=== PATIENT | female | born 1935 | race Caucasian/White ===

== ENCOUNTER 2016-11-03 20:10 | Emergency (ER) | payer MEDICARE, OTHER ==
[~2016-11-03] VITALS: Ht 165.1 cm; Wt 69.0 kg
[~2016-11-03 20:10] MED LIST: CLON.5 PO; FENT50DI TD; GABA300C3 PO; HYDR50TA15 PO; LASI20TA PO; LEVO88TA2 PO; LOSA50TA PO; MEGE40TA3 PO; METF-324 PO; METO25 PO; MIRA25TA PO; STAR120T PO
[2016-11-03 20:19] VITALS: BP 119/69; PULSE 67; RESP 14; TEMP 97.9; O2SAT 97
--- NOTE | 2016-11-03 20:34 | PD ---
HPI Chief Complaint: Chest Pain Time Seen by Provider: 20:21 Travel History International Travel<30 days: No Contact w/Intl Traveler<30days: No Traveled to known affect area: No History of Present Illness HPI Is an 81-year-old female presents emergency department for evaluation of chest pain now resolved. Patient states it started approximately an hour and a half prior to arrival. She states some middle of her chest without radiation also had some shortness of breath. The patient currently resides in a fpc called [facility]. She states that she's been in and out of the hospital similar and had complete workups stress test that she does not have any idea when she was there last. She asked EMS to bring her to [place] today. She did receive aspirin and nitroglycerin in route the latter which gave her mild headache but completely relieved her pain. She denies a history of heart attack or stroke. Denies any history of blood clots. PFSH Past Medical History Blood Disorders: No Cancer: No Cardiovascular Problems: Yes High Cholesterol: Yes Chemotherapy: Yes (HX ) Diabetes: Yes Endocrine: Yes Gastrointestinal Disorders: No Genitourinary: Yes (URINARY FREQUENCY) Hypertension: Yes Immune Disorder: No Implanted Vascular Access Dvce: No Musculoskeletal: No Neurologic: No Reproductive: No Respiratory: Yes Thyroid Disease: Yes (HYPO) ?: Not Past Surgical History Appendectomy: Yes Cholecystectomy: Yes Gynecologic Surgery: Yes (UTERINE FIBROIDS REMOVED) Mastectomy: Yes (LEFT) Tonsillectomy: Yes Other Surgery: Yes (see hx) Social History Alcohol Use: No Tobacco Use: No Substance Use: No Allergies-Medications (Allergen,Severity, Reaction): Coded Allergies: Avandia (Unverified Allergy, Severe, Swelling, 04/24/15) Aspirin (Unverified Allergy, Intermediate, Burning, 04/24/15) Adhesives (Verified Allergy, Unknown, 11/03/16) Amlodipine (Verified Allergy, Unknown, 11/03/16) Bupropion (Verified Allergy, Unknown, 11/03/16) Duloxetine HCl (Verified Allergy, Unknown, 11/03/16) Escitalopram Oxalate (Verified Allergy, Unknown, 11/03/16) Pseudoephedrine (Verified Allergy, Unknown, 11/03/16) Rosiglitazone (Verified Allergy, Unknown, 11/03/16) Scopolamine (Verified Allergy, Unknown, 11/03/16) Seafood (Verified Allergy, Unknown, 11/03/16) Valsartan (Verified Allergy, Unknown, 11/03/16) Reported Meds & Prescriptions Reported Meds & Active Scripts Active Reported Gabapentin 300 Mg Cap 900 Mg PO TID Zofran (Ondansetron HCl) 4 Mg Tab 4 Mg PO Q6HR PRN Metoprolol Tartrate 25 Mg Tab 12.5 Mg PO BID Atorvastatin (Atorvastatin Calcium) 10 Mg Tab 10 Mg PO HS Tylenol (Acetaminophen) 325 Mg Tab 650 Mg PO Q4H PRN Milk of Magnesia Liq (Magnesium Hydroxide) 400 Mg/5 Ml Susp 30 Ml PO DAILY PRN Lantus Inj (Insulin Glargine) 1,000 Unit/10 Ml Vial 10 Units SQ HS Potassium Chloride ER (Potassium Chloride) 20 Meq Tab 20 Meq PO DAILY Aspirin Low Dose (Aspirin) 81 Mg Chew 81 Mg CHEW DAILY Hydralazine HCl 25 Mg Tablet 25 Mg PO BID Nateglinide 120 Mg Tab 120 Mg PO TIDAC Gabapentin 300 Mg Cap 300 Mg PO DAILY Clonazepam 0.5 Mg Tab 0.25 Mg PO HS Furosemide 40 Mg Tab 40 Mg PO DAILY Humalog Inj (Insulin Human Lispro) 1,000 Unit/10 Ml Vial 5-25 Units SQ ACHS Max dose at bedtime:( )units; sugars < 70,(0)units; sugars 150-199,(5)units; sugars 200-249,(10)units; sugars 250-299,(15)units; sugars 300-349,(20)units; sugars more than 349,(25)units. Actos (Pioglitazone HCl) 30 Mg Tab 30 Mg PO DAILY Fentanyl Patch 72 HR (Fentanyl) 50 Mcg/Hr Patch 50 Mcg T-DERMAL Q72H Remove old patch when new one placed. Levoxyl (Levothyroxine Sodium) 88 Mcg Tab 88 Mcg PO DAILY Review of Systems Except as stated in HPI: all other systems reviewed are Neg Physical Exam Narrative GENERAL: Well-developed well-nourished, elderly female in no obvious distress. SKIN: Focused skin assessment warm/dry. HEAD: Atraumatic. Normocephalic. EYES: Pupils equal and round. No scleral icterus. No injection or drainage. ENT: No nasal bleeding or discharge. Mucous membranes pink and moist. NECK: Trachea midline. No JVD. CARDIOVASCULAR: Regular rate and rhythm. No murmur appreciated. 2+ bilateral equal pulses in all 4 extremities. RESPIRATORY: No accessory muscle use. Clear to auscultation. Breath sounds equal bilaterally. GASTROINTESTINAL: Abdomen soft, non-tender, nondistended. Hepatic and splenic margins not palpable. MUSCULOSKELETAL: No obvious deformities. No clubbing. No cyanosis. No edema. NEUROLOGICAL: Awake and alert. No obvious cranial nerve deficits. Motor grossly within normal limits. Normal speech. PSYCHIATRIC: Appropriate mood and affect; insight and judgment normal. Data Data Last Documented VS Vital Signs Date Time Temp Pulse Resp B/P Pulse Ox O2 Delivery O2 Flow Rate FiO2 11/03/16 22:49 68 20 139/67 97 Nasal Cannula 2 11/03/16 20:19 97.9 Orders Basic Metabolic Panel (Bmp) (11/03/16 20:33) Ckmb (Isoenzyme) Profile (11/03/16 20:33) Complete Blood Count With Diff (11/03/16 20:33) Magnesium (Mg) (11/03/16 20:33) Prothrombin Time / Inr (Pt) (11/03/16 20:33) Act Partial Throm Time (Ptt) (11/03/16 20:33) Troponin I (11/03/16 20:33) Chest, Single Ap (11/03/16 20:33) Ecg Monitoring (11/03/16 20:33) Iv Access Insert/Monitor (11/03/16 20:33) Oximetry (11/03/16 20:33) Oxygen Administration (11/03/16 20:33) Sodium Chloride 0.9% Flush (Ns Flush) (11/03/16 20:45) Gabapentin (Neurontin) (11/03/16 23:00) Labs Laboratory Tests Test 11/03/16 20:30 White Blood Count 7.6 TH/MM3 Red Blood Count 4.22 MIL/MM3 Hemoglobin 13.7 GM/DL Hematocrit 40.5 % Mean Corpuscular Volume 95.9 FL Mean Corpuscular Hemoglobin 32.4 PG Mean Corpuscular Hemoglobin 33.8 % Concent Red Cell Distribution Width 14.3 % Platelet Count 256 TH/MM3 Mean Platelet Volume 8.7 FL Neutrophils (%) (Auto) 66.2 % Lymphocytes (%) (Auto) 25.2 % Monocytes (%) (Auto) 7.7 % Eosinophils (%) (Auto) 0.5 % Basophils (%) (Auto) 0.4 % Neutrophils # (Auto) 5.1 TH/MM3 Lymphocytes # (Auto) 1.9 TH/MM3 Monocytes # (Auto) 0.6 TH/MM3 Eosinophils # (Auto) 0.0 TH/MM3 Basophils # (Auto) 0.0 TH/MM3 CBC Comment DIFF FINAL Differential Comment Prothrombin Time 10.8 SEC Prothromb Time International 1.0 RATIO Ratio Activated Partial 27.9 SEC Thromboplast Time Sodium Level 138 MEQ/L Potassium Level 3.4 MEQ/L Chloride Level 102 MEQ/L Carbon Dioxide Level 31.2 MEQ/L Anion Gap 5 MEQ/L Blood Urea Nitrogen 28 MG/DL Creatinine 1.11 MG/DL Estimat Glomerular Filtration 47 ML/MIN Rate Random Glucose 213 MG/DL Calcium Level 9.4 MG/DL Magnesium Level 2.0 MG/DL Total Creatine Kinase 57 U/L Troponin I LESS THAN 0.02 NG/ML MDM Medical Decision Making Medical Screen Exam Complete: Yes Emergency Medical Condition: Yes Interpretation(s) EKG shows sinus rhythm left axis deviation and poor R-wave progression. No concerning ST segment changes. First-degree AV block. Differential Diagnosis Chest wall pain, anxiety, chronic pain, ACS seems unlikely, MD seems unlikely. Narrative Course Patient roomed in emergency department, she appears fairly comfortable. Later into her ED course she had requested her gabapentin which she is due for. She states her legs been hurting quite a bit. Did receive a call from the patient' s healthcare surrogate Anya Pereira. She states that she is a physical therapist and that her mother has had a struggle with opiate abuse. She states that she just got out of the hospital at [facility] for chest pain and had a complete workup which was negative. She states that she is somewhat upset that they brought her to the hospital for this chest pain. She states that her mom has been under some stress recently because she is about to be released, back with her. I discussed this history with the patient and she was agreeable to going back to the fpc at this time. She is medically stable to do so. Troponin negative, EKG fairly unremarkable. Diagnosis Primary Impression: Chest pain Disposition: 03 DISCHARGE TO SNF Condition: Stable Jamison Price MD Nov 03, 2016 20:34
[2016-11-03] MEDS ORDERED: SODIUM CHLORIDE 0.9% FLUSH 10 ML FLUSH IVF PRN (20:45)
--- NOTE | 2016-11-03 20:51 | RADRPT ---
EXAM DATE/TIME: 11/03/2016 20:27 [facility] COMPARISON: CHEST SINGLE AP, April 24, 2015, 19:43. INDICATIONS : Chest pain MEDICAL HISTORY : Hypertension. Hypercholesterolemia. Carcinoma, breast. Diabetes. SURGICAL HISTORY : Mastectomy, left. Infusaport. ENCOUNTER: Initial ACUITY: 1 day PAIN SCORE: 3/10 LOCATION: chest FINDINGS: Single AP view of the chest. Right-sided [id number] remains in place. The lungs are clear. Tortuou s thoracic aorta. Cardiac silhouette within normal limits.. No evidence of pleural effusion or pneumo thorax. Surgical clips in the left axilla. Evidence of prior kyphoplasty or vertebroplasty in the low er thoracic region. CONCLUSION: No acute cardiopulmonary disease identified. Hood Stokes MD on November 03, 2016 at 20:48 Board Certified Radiologist. This report was verified electronically.
[2016-11-03] MEDS ORDERED: NATE120T PO (20:55)
[2016-11-03] MEDS ORDERED: METO25TA3 PO (20:55)
[2016-11-03] MEDS ORDERED: FURO40TA PO (20:55)
[2016-11-03] MEDS ORDERED: ATOR10TA15 PO (20:55)
[2016-11-03] MEDS ORDERED: TYLE325T PO (20:55)
[2016-11-03] MEDS ORDERED: FENT50DI T-DERMAL (20:55)
[2016-11-03] MEDS ORDERED: HYDR-3799 PO (20:55)
[2016-11-03] MEDS ORDERED: ASPI81CH37 CHEW (20:55)
[2016-11-03] MEDS ORDERED: POTA-163 PO (20:55)
[2016-11-03] MEDS ORDERED: GABA300C5 PO ×2 (20:55)
[2016-11-03] MEDS ORDERED: HUMALOG SQ (20:55)
[2016-11-03] MEDS ORDERED: CLON0.5T PO (20:55)
[2016-11-03] MEDS ORDERED: ZOFR4TAB PO (20:55)
[2016-11-03] MEDS ORDERED: MILKSUS PO (20:55)
[2016-11-03] MEDS ORDERED: ACTO30TA10 PO (20:55)
[2016-11-03] MEDS ORDERED: LANTUS2P SQ (20:55)
[2016-11-03] MEDS ORDERED: LEVO88TA30 PO (20:55)
[2016-11-03 21:15] LABS: AUTOMATED NEUTROPHIL # 5.1 TH/MM3 (1.8-7.7); BASOPHIL % 0.4 % (0.0-2.0); EOSINOPHIL % 0.5 % (0.0-4.0); HEMATOCRIT 40.5 % (35.0-46.0); HEMO FLAGS DIFF FINAL; LYMPH % 25.2 % (9.0-44.0); LYMPHOCYTE # 1.9 TH/MM3 (1.0-4.8); MEAN CELL VOLUME 95.9 FL (80.0-100.0); MEAN CORPUSCULAR HEMOGLOBIN 32.4 PG (27.0-34.0); MEAN CORPUSCULAR HGB CONC 33.8 % (32.0-36.0); MONO % 7.7 % (0.0-8.0); NEUT % 66.2 % (16.0-70.0); PLATELET COUNT 256 TH/MM3 (150-450); RED BLOOD COUNT 4.22 MIL/MM3 (4.00-5.30); RED CELL DISTRIBUTION WIDTH 14.3 % (11.6-17.2); WHITE BLOOD COUNT 7.6 TH/MM3 (4.0-11.0)
[2016-11-03 21:25] LABS: APTT (PATIENT) 27.9 SEC (24.3-30.1); PROTHROMBIN TIME - PATIENT 10.8 SEC (9.8-11.6)
[2016-11-03 21:29] LABS: ANION GAP 5 MEQ/L (5-15); BICARBONATE 31.2 MEQ/L (21.0-32.0); BLOOD UREA NITROGEN 28 MG/DL (7-18); CHLORIDE 102 MEQ/L (98-107); GLOMERULAR FILTRATION RATE 47 ML/MIN (>89); POTASSIUM 3.4 MEQ/L (3.5-5.1); SODIUM (NA) 138 MEQ/L (136-145)
[2016-11-03 21:35] LABS: CREATINE KINASE 57 U/L (26-192)
[2016-11-03 21:46] VITALS: BP 129/74; PULSE 69; RESP 18; O2SAT 96
[2016-11-03 22:49] VITALS: BP 139/67; PULSE 68; RESP 20; O2SAT 97
[2016-11-03] MEDS ORDERED: GABAPENTIN 300 MG CAP PO ONE (23:00)
[2016-11-04 09:11] VITALS: BP 137/76; PULSE 67; RESP 20; O2SAT 98
--- NOTE | 2016-11-04 16:40 | EKG ---
Date Performed: 11/03/2016 Time Performed: 20:26:00 PTAGE: 81 years EKG: Sinus rhythm WITH FIRST DEGREE AV BLOCK MARKED LEFT AXIS DEVIATION POSSIBLE ANTERIOR MYOCARDIAL INFARCTION ABNORM AL ECG PREVIOUS TRACING : 04/24/2015 20.17 Since previous tracing, no significant change noted DOCTOR: Kenneth Collazo Interpretating Date/Time 11/04/2016 16:39:13
== END 2016-11-04 12:16 ==
LOC: NEPC 20:10 → NEPD 11-04 12:16
DX: R07.9 Chest pain, unspecified (principal); I10 Essential (primary) hypertension; E11.9 Type 2 diabetes mellitus without complications; Z79.4 Long term (current) use of insulin; Z79.899 Other long term (current) drug therapy
CPT/HCPCS: 71010; 80048; 82550; 83735; 84484; 85025; 85610; 85730; 93005; 99284

== ENCOUNTER 2017-04-10 17:33 | Inpatient (IN) | payer MEDICARE, OTHER ==
[~2017-04-10] VITALS: Ht 172.7 cm; Wt 75.1 kg
[~2017-04-10 17:33] MED LIST changes: +ASPI81CH6 CHEW; +ATOR10TA15 PO; -CLON.5 PO; +CLON0.5T PO; +FENT50DI T-DERMAL; -FENT50DI TD; +FURO40TA PO; -GABA300C3 PO; +GABA300C5 PO; +HUMALOG SQ; +HYDR-3799 PO; -HYDR50TA15 PO; +LANTUS2P SQ; -LASI20TA PO; -LEVO88TA2 PO; +LEVO88TA30 PO; -LOSA50TA PO; -MEGE40TA3 PO; -METF-324 PO; -METO25 PO; +METO25TA3 PO; +MILKSUS PO; -MIRA25TA PO; +NATE120T PO; +PIOG30 PO; +POTA-163 PO; -STAR120T PO; +TYLE325T PO; +ZOFR4TAB PO
[2017-04-10 17:35] VITALS: BP 154/85; PULSE 72; RESP 18; TEMP 97.9; O2SAT 96
[2017-04-10] MEDS ORDERED: SODIUM CHLORIDE 0.9% FLUSH 10 ML FLUSH IV FLUSH PRN ×2 (18:00→22:15)
[2017-04-10] MEDS ORDERED: MORPHINE SULFATE 2 MG/ML INJ IV PUSH ONE ×2 (18:00→21:15)
--- NOTE | 2017-04-10 18:03 | PD ---
HPI Chief Complaint: Fall Time Seen by Provider: 17:53 Travel History International Travel<30 days: No Contact w/Intl Traveler<30days: No Traveled to known affect area: No History of Present Illness HPI 81-year-old female here with her grandson for evaluation of left flank and left lower back pain, left hip pain, and right shoulder pain after a fall while using her walker a couple hours ago. Patient fell backwards into a TV stand. She did not lose consciousness. She did not fall to the floor. She has been able to use her walker since the fall to ambulate, however it is been difficult for her. She reports pain is 10 out of 10, constant, worse with movement and palpation. She has a fentanyl patch for chronic knee pain. She is not on any antiplatelets or anticoagulants. No other injuries. PFSH Past Medical History Arthritis: Yes (OSTEO) Blood Disorders: No Anxiety: Yes Depression: Yes Cancer: No Cardiovascular Problems: Yes High Cholesterol: Yes Chemotherapy: Yes (HX ) Chest Pain: Yes Coronary Artery Disease: Yes Diabetes: Yes Diminished Hearing: Yes ([place]) Endocrine: Yes Gastrointestinal Disorders: No Genitourinary: Yes (URINARY FREQUENCY) Hypertension: Yes Immune Disorder: No Implanted Vascular Access Dvce: No Musculoskeletal: No Neurologic: Yes (PVD) Reproductive: No Respiratory: Yes Immunizations Current: Yes Thyroid Disease: Yes (HYPO) Menopausal: Yes : 3 Para: 3 Past Surgical History Appendectomy: Yes Cholecystectomy: Yes Gynecologic Surgery: Yes (UTERINE FIBROIDS REMOVED) Mastectomy: Yes (LEFT) Tonsillectomy: Yes Other Surgery: Yes (see hx) Social History Alcohol Use: No Tobacco Use: No Substance Use: No Allergies-Medications (Allergen,Severity, Reaction): Coded Allergies: aspirin (Unverified Allergy, Intermediate, Burning, 04/10/17) Fish Containing Products (Unverified Allergy, Unknown, 04/10/17) adhesive (Unverified Allergy, Unknown, 04/10/17) amlodipine (Unverified Allergy, Unknown, 04/10/17) bupropion (Unverified Allergy, Unknown, 04/10/17) duloxetine (Unverified Allergy, Unknown, 04/10/17) escitalopram (Unverified Allergy, Unknown, 04/10/17) pseudoephedrine (Unverified Allergy, Unknown, 04/10/17) rosiglitazone (Unverified Allergy, Unknown, 04/10/17) scopolamine (Unverified Allergy, Unknown, 04/10/17) valsartan (Unverified Allergy, Unknown, 04/10/17) Reported Meds & Prescriptions Reported Meds & Active Scripts Active Reported Gabapentin 300 Mg Cap 900 Mg PO TID Zofran (Ondansetron HCl) 4 Mg Tab 4 Mg PO Q6HR PRN Metoprolol Tartrate 25 Mg Tab 12.5 Mg PO BID Atorvastatin (Atorvastatin Calcium) 10 Mg Tab 10 Mg PO HS Tylenol (Acetaminophen) 325 Mg Tab 650 Mg PO Q4H PRN Milk of Magnesia Liq (Magnesium Hydroxide) 400 Mg/5 Ml Susp 30 Ml PO DAILY PRN Lantus Inj (Insulin Glargine) 1,000 Unit/10 Ml Vial 10 Units SQ HS Potassium Chloride ER (Potassium Chloride) 20 Meq Tab 20 Meq PO DAILY Aspirin Low Dose (Aspirin) 81 Mg Chew 81 Mg CHEW DAILY Hydralazine HCl 25 Mg Tablet 25 Mg PO BID Nateglinide 120 Mg Tab 120 Mg PO TIDAC Gabapentin 300 Mg Cap 300 Mg PO DAILY Clonazepam 0.5 Mg Tab 0.25 Mg PO HS Furosemide 40 Mg Tab 40 Mg PO DAILY Humalog Inj (Insulin Human Lispro) 1,000 Unit/10 Ml Vial 5-25 Units SQ ACHS Max dose at bedtime:( )units; sugars < 70,(0)units; sugars 150-199,(5)units; sugars 200-249,(10)units; sugars 250-299,(15)units; sugars 300-349,(20)units; sugars more than 349,(25)units. Actos (Pioglitazone HCl) 30 Mg Tab 30 Mg PO DAILY Fentanyl Patch 72 HR (Fentanyl) 50 Mcg/Hr Patch 50 Mcg T-DERMAL Q72H Remove old patch when new one placed. Levoxyl (Levothyroxine Sodium) 88 Mcg Tab 88 Mcg PO DAILY Review of Systems Except as stated in HPI: all other systems reviewed are Neg Physical Exam Narrative GENERAL: Well-developed, well-nourished, awake, alert, GCS 15, no apparent distress. SKIN: Focused skin assessment warm/dry. No lacerations, abrasions, or ecchymosis. HEAD: Atraumatic. Normocephalic. EYES: Pupils equal, round, 3 mm, reactive to light. No scleral icterus. No injection or drainage. ENT: No nasal bleeding or discharge. Mucous membranes pink and moist. NECK: Trachea midline. No JVD. CARDIOVASCULAR: Regular rate and rhythm. RESPIRATORY: No accessory muscle use. Clear to auscultation. Breath sounds equal bilaterally. GASTROINTESTINAL: Abdomen soft, non-tender, nondistended. MUSCULOSKELETAL: No obvious deformities. No clubbing. No cyanosis. No edema. No midline vertebral step-off or tenderness. Mild left flank tenderness. Left lateral hip with mild tenderness without obvious deformity, without lower external shortening or rotational deformity, with normal range of motion. Right shoulder is without obvious deformity, with moderate diffuse tenderness, with normal range of motion. Respiratory joints and extremities are without deformity, without tenderness, with normal range of motion. NEUROLOGICAL: Awake and alert. No obvious cranial nerve deficits. Motor grossly within normal limits. Normal speech. PSYCHIATRIC: Appropriate mood and affect; insight and judgment normal. Data Data Last Documented VS Vital Signs Date Time Temp Pulse Resp B/P (MAP) Pulse Ox O2 Delivery O2 Flow Rate FiO2 04/10/17 21:03 79 18 179/79 (112) 99 Room Air 04/10/17 17:35 97.9 Orders Orders Complete Blood Count With Diff (04/10/17 17:58) Comprehensive Metabolic Panel (04/10/17 17:58) Prothrombin Time / Inr (Pt) (04/10/17 17:58) Act Partial Throm Time (Ptt) (04/10/17 17:58) Ct Abd/Pel W Iv Contrast(Rout) (04/10/17 17:58) Iv Access Insert/Monitor (04/10/17 17:58) Ecg Monitoring (04/10/17 17:58) Oximetry (04/10/17 17:58) Sodium Chloride 0.9% Flush (Ns Flush) (04/10/17 18:00) Ct Brain W/O Iv Contrast(Rout) (04/10/17 ) Ct Cerv Spine W/O Contrast (04/10/17 ) Chest, Single Ap (04/10/17 ) Shoulder, Complete (>2vws) (04/10/17 ) Pelvis, Ap Only (Routine) (04/10/17 ) Morphine Inj (Morphine Inj) (04/10/17 18:00) Ct Thorax/ Chest W Iv Contrast (04/10/17 ) Iohexol 350 Inj (Omnipaque 350 Inj) (04/10/17 20:27) Ct Thor Spine W Iv Contrast (04/10/17 ) Ct Lumb Spine W Iv Contrast (04/10/17 ) Urinalysis - C+S If Indicated (04/10/17 21:04) Morphine Inj (Morphine Inj) (04/10/17 21:15) Ondansetron Inj (Zofran Inj) (04/10/17 21:15) Urine Culture (04/10/17 21:23) Ceftriaxone Inj (Rocephin Inj) (04/10/17 22:00) Labs Laboratory Tests Test 04/10/17 18:20 04/10/17 19:08 04/10/17 21:23 White Blood Count 8.9 TH/MM3 Red Blood Count 4.63 MIL/MM3 Hemoglobin 14.7 GM/DL Hematocrit 43.7 % Mean Corpuscular Volume 94.3 FL Mean Corpuscular Hemoglobin 31.8 PG Mean Corpuscular Hemoglobin Concent 33.7 % Red Cell Distribution Width 14.5 % Platelet Count 218 TH/MM3 Mean Platelet Volume 9.4 FL Neutrophils (%) (Auto) 77.4 % Lymphocytes (%) (Auto) 14.7 % Monocytes (%) (Auto) 7.1 % Eosinophils (%) (Auto) 0.2 % Basophils (%) (Auto) 0.6 % Neutrophils # (Auto) 6.9 TH/MM3 Lymphocytes # (Auto) 1.3 TH/MM3 Monocytes # (Auto) 0.6 TH/MM3 Eosinophils # (Auto) 0.0 TH/MM3 Basophils # (Auto) 0.1 TH/MM3 CBC Comment DIFF FINAL Differential Comment Prothrombin Time 11.1 SEC Prothromb Time International Ratio 1.1 RATIO Activated Partial Thromboplast Time 28.2 SEC Blood Urea Nitrogen 20 MG/DL Creatinine 1.06 MG/DL Random Glucose 173 MG/DL Total Protein 7.3 GM/DL Albumin 3.9 GM/DL Calcium Level 9.9 MG/DL Alkaline Phosphatase 101 U/L Aspartate Amino Transf (AST/SGOT) 20 U/L Alanine Aminotransferase (ALT/SGPT) 18 U/L Total Bilirubin 1.9 MG/DL Sodium Level 140 MEQ/L Potassium Level 3.4 MEQ/L Chloride Level 105 MEQ/L Carbon Dioxide Level 27.9 MEQ/L Anion Gap 7 MEQ/L Estimat Glomerular Filtration Rate 50 ML/MIN Urine Color LIGHT-YELLOW Urine Turbidity CLEAR Urine pH 7.0 Urine Specific [place] 1.020 Urine Protein NEG mg/dL Urine Glucose (UA) 70 mg/dL Urine Ketones TRACE mg/dL Urine Occult Blood TRACE Urine Nitrite NEG Urine Bilirubin NEG Urine Urobilinogen LESS THAN 2.0 MG/DL Urine Leukocyte Esterase SMALL Urine RBC 6 /hpf Urine WBC 11 /hpf Urine Squamous Epithelial Cells <1 /hpf Microscopic Urinalysis Comment CULTURE INDICATED MDM Medical Decision Making Medical Screen Exam Complete: Yes Emergency Medical Condition: Yes Differential Diagnosis Vertebral injury, retroperitoneal injury, hip fracture, hip contusion, shoulder contusion Narrative Course Vital signs reviewed. CBC is essentially unremarkable. CMP is remarkable for BUN 20, creatinine 1.06, GFR 50, random glucose 173, potassium 3.4, otherwise unremarkable. CT head: No acute disease. CT cervical spine: No acute fracture or dislocation. Degenerative changes. CT thoracic spine: No fracture or dislocation. Prior cement augmentation of T11 and T12. Diffuse mild degenerative changes. CT lumbar spine: No fracture dislocation. Advanced degenerative changes and scoliotic curvature. Old T12 and L1 compression deformities. CT thorax: CONCLUSION: 1. Cardiomegaly. 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 CT abdomen pelvis: CONCLUSION: 1. No signs of acute trauma. 2. 14 mm left UPJ stone with obstruction. Patient was made aware of all findings. She has had frequent episodes of nausea with dry heaving in the emergency department. She continues to complain of left flank pain. There is some perinephric stranding on the left with signs of obstruction with a passing proximal 1.4 cm stone in the proximal ureter. UA will be obtained. Because of the size of the stone and ongoing pain, the patient will be admitted for further treatment and evaluation and likely urology consultation. She is amenable to this plan. UA: 70 glucose, trace ketones, trace occult blood, small leukocyte esterase, 6 rbc's , 11 WBCs. Patient was given 1 g of IV Rocephin. Case discussed with hospitalist Dr. Agarwal who will admit the patient to the hospitalist service. Diagnosis Primary Impression: Ureterolithiasis Additional Impressions: Obstructive uropathy Fall Qualified Codes: W19.XXXA - Unspecified fall, initial encounter Intractable pain Admitting Information Admitting Physician Requests: Fabio Cejaan N MD Apr 10, 2017 18:03
[2017-04-10 18:40] LABS: AUTOMATED NEUTROPHIL # 6.9 TH/MM3 (1.8-7.7); BASOPHIL # 0.1 TH/MM3 (0-0.2); BASOPHIL % 0.6 % (0.0-2.0); EOSINOPHIL % 0.2 % (0.0-4.0); HEMATOCRIT 43.7 % (35.0-46.0); HEMOGLOBIN 14.7 GM/DL (11.6-15.3); LYMPH % 14.7 % (9.0-44.0); LYMPHOCYTE # 1.3 TH/MM3 (1.0-4.8); MEAN CELL VOLUME 94.3 FL (80.0-100.0); MEAN CORPUSCULAR HEMOGLOBIN 31.8 PG (27.0-34.0); MEAN CORPUSCULAR HGB CONC 33.7 % (32.0-36.0); MEAN PLATELET VOLUME 9.4 FL (7.0-11.0); MONO % 7.1 % (0.0-8.0); MONOCYTE # 0.6 TH/MM3 (0-0.9); NEUT % 77.4 % (16.0-70.0); PLATELET COUNT 218 TH/MM3 (150-450); RED BLOOD COUNT 4.63 MIL/MM3 (4.00-5.30); RED CELL DISTRIBUTION WIDTH 14.5 % (11.6-17.2); WHITE BLOOD COUNT 8.9 TH/MM3 (4.0-11.0)
[2017-04-10 18:53] LABS: INTERNATIONAL NORMALIZED RATIO 1.1 RATIO; PROTHROMBIN TIME - PATIENT 11.1 SEC (9.8-11.6)
[2017-04-10 19:00] VITALS: BP 176/87; PULSE 80; RESP 18; O2SAT 98
--- NOTE | 2017-04-10 19:20 | RADRPT ---
EXAM DATE/TIME: 04/10/2017 18:49 [facility] COMPARISON: No previous studies available for comparison. INDICATIONS : Evaluate pelvis for trauma, fell MEDICAL HISTORY : Hypertension. Hypercholesterolemia. Carcinoma, breast. Diabetes SURGICAL HISTORY : Mastectomy, left. Infusaport. ENCOUNTER: Initial ACUITY: 1 day PAIN SCORE: 0/10 LOCATION: Pelvis FINDINGS: A single frontal view of the pelvis demonstrates no evidence of fracture. The bony pelvic ring is in tact. Bony mineralization is significantly reduced. Venous catheter patient overlie the pelvis. The soft tissues are intact. CONCLUSION: No acute abnormality. Kane Stanley Jr., MD on April 10, 2017 at 19:18 Board Certified Radiologist. This report was verified electronically.
--- NOTE | 2017-04-10 19:20 | RADRPT ---
EXAM DATE/TIME: 04/10/2017 18:46 [facility] COMPARISON: CHEST SINGLE AP, November 03, 2016, 20:27. INDICATIONS : Evaluate chest for trauma, fell MEDICAL HISTORY : Hypertension. Hypercholesterolemia. Carcinoma, breast. Diabetes. SURGICAL HISTORY : Mastectomy, left. Infusaport ENCOUNTER: Initial ACUITY: 1 day PAIN SCORE: 0/10 LOCATION: Bilateral chest FINDINGS: A single view of the chest demonstrates the lungs to be symmetrically aerated without evidence of mas s, infiltrate or effusion. The cardiomediastinal contours are unremarkable. Osseous structures are intact. A Port-A-Cath overlies the right chest. Surgical clips are seen involving the left axilla. CONCLUSION: No acute disease. Kane Stanley Jr., MD on April 10, 2017 at 19:17 Board Certified Radiologist. This report was verified electronically.
--- NOTE | 2017-04-10 19:21 | RADRPT ---
EXAM DATE/TIME: 04/10/2017 18:51 [facility] COMPARISON: No previous studies available for comparison. INDICATIONS : Right shoulder pain, fell MEDICAL HISTORY : Hypertension. Hypercholesterolemia. Carcinoma, breast. Diabetes SURGICAL HISTORY : Mastectomy, left. Infusaport ENCOUNTER: Initial ACUITY: 1 day PAIN SCORE: 10/10 LOCATION: Right chest FINDINGS: 4 views of the right shoulder show no fracture or dislocation. An oval shaped ossification is seen ad jacent to the right superior lateral humeral head. There is spurring seen at the a.c. joint. A Port-A -Cath overlies the right shoulder. Soft tissues are otherwise unremarkable. CONCLUSION: Suspected chronic rotator cuff injury. No acute abnormality. Kane Stanley Jr., MD on April 10, 2017 at 19:18 Board Certified Radiologist. This report was verified electronically.
[2017-04-10 19:51] VITALS: RESP 16; O2SAT 97
[2017-04-10 19:56] LABS: ALBUMIN 3.9 GM/DL (3.4-5.0); AST (GOT) 20 U/L (15-37); BICARBONATE 27.9 MEQ/L (21.0-32.0); BLOOD UREA NITROGEN 20 MG/DL (7-18); CALCIUM 9.9 MG/DL (8.5-10.1); CHLORIDE 105 MEQ/L (98-107); CREATININE 1.06 MG/DL (0.50-1.00); GLOMERULAR FILTRATION RATE 50 ML/MIN (>89); GLUCOSE,RANDOM 173 MG/DL (74-106); SODIUM (NA) 140 MEQ/L (136-145)
[2017-04-10 19:57] LABS: ALT (GPT) 18 U/L (10-53)
[2017-04-10 19:59] LABS: ALKALINE PHOSPHATASE 101 U/L (45-117); TOTAL BILIRUBIN ADULT 1.9 MG/DL (0.2-1.0); TOTAL PROTEIN 7.3 GM/DL (6.4-8.2)
[2017-04-10] MEDS ORDERED: IOHEXOL 350 MG/ML 10 ML VIAL (for RAD DIAG) IVCONTRAST ONE (20:27)
--- NOTE | 2017-04-10 20:40 | RADRPT ---
EXAM DATE/TIME: 04/10/2017 20:04 [facility] COMPARISON: No previous studies available for comparison. INDICATIONS : Trauma, fall. RADIATION DOSE: 56.35 CTDIvol (mGy) MEDICAL HISTORY : Hypertension. Diabetes mellitus type 2. SURGICAL HISTORY : None. ENCOUNTER: Initial ACUITY: 1 day PAIN SCALE: 0/10 LOCATION: cranial TECHNIQUE: Multiple contiguous axial images were obtained of the head. Using automated exposure control and adj ustment of the mA and/or kV according to patient size, radiation dose was kept as low as reasonably a chievable to obtain optimal diagnostic quality images. DICOM format image data is available electro nically for review and comparison. FINDINGS: CEREBRUM: Atrophy. The ventricles are normal for age. No evidence of midline shift, mass lesion, hemorrhage or acute infarction. No extra-axial fluid collections are seen. POSTERIOR FOSSA: The cerebellum and brainstem are intact. The 4th ventricle is midline. The cerebellopontine angle i s unremarkable. EXTRACRANIAL: The visualized portion of the orbits is intact. SKULL: The calvaria is intact. No evidence of skull fracture. CONCLUSION: No acute disease. Kane Stanley Jr., MD on April 10, 2017 at 20:37 Board Certified Radiologist. This report was verified electronically.
--- NOTE | 2017-04-10 20:43 | RADRPT ---
EXAM DATE/TIME: 04/10/2017 20:05 [facility] COMPARISON: No previous studies available for comparison. INDICATIONS : Trauma, fall. RADIATION DOSE: 31.25 CTDIvol (mGy) MEDICAL HISTORY : Hypertension. Diabetes mellitus type 2. SURGICAL HISTORY : None. ENCOUNTER: Initial ACUITY: 1 day PAIN SCALE: 0/10 LOCATION: neck TECHNIQUE: Volumetric scanning of the cervical spine was performed. Multiplanar reconstructions in the sagittal, coronal and oblique axial planes were performed. Using automated exposure control and adjustment o f the mA and/or kV according to patient size, radiation dose was kept as low as reasonably achievable to obtain optimal diagnostic quality images. DICOM format image data is available electronically f or review and comparison. FINDINGS: VERTEBRAE: Normal vertebral body height. ALIGNMENT: Curvature towards the patient's left felt to be positional in nature. Grade 1 anterolisthesis of C4 o n C5. C2-C3: Mild broad-based disc bulge. No central canal stenosis. Neural foramina are patent bilaterally. C3-C4: Mild central bulge. No abutment of the cord or central canal stenosis. Bony uncovertebral hypertrophy generates mild left neural foraminal narrowing. The right remains patent. C4-C5: There is an anterolisthesis with broad-based disc osteophyte complex. Central canal remains patent. P rominent bony uncovertebral hypertrophy generates severe left and moderate right neural foraminal hanna rowing. C5-C6: There is a mild broad-based disc bulge. Central canal remains patent. Bony uncovertebral hypertrophy generates moderate bilateral neural foraminal narrowing. C6-C7: The bony spinal canal is normal in size. No evidence of disc bulge or herniation. The neural forami na are bilaterally patent. C7-T1: The bony spinal canal is normal in size. No evidence of disc bulge or herniation. The neural forami na are bilaterally patent. CONCLUSION: 1. No fracture or dislocation. 2. Degenerative changes as detailed above. Kane Stanley Jr., MD on April 10, 2017 at 20:38 Board Certified Radiologist. This report was verified electronically.
--- NOTE | 2017-04-10 20:47 | RADRPT ---
EXAM DATE/TIME: 04/10/2017 20:09 [facility] COMPARISON: CT ABDOMEN & PELVIS W CONTRAST, April 16, 2015, 17:40. INDICATIONS : Trauma, fall. IV CONTRAST: 100 cc Omnipaque 350 (iohexol) IV ; Cumulative dose for multiple exams. ORAL CONTRAST: No oral contrast ingested. RADIATION DOSE: 7.31 CTDIvol (mGy) ; Combined studies - Thorax/Abdomen/Pelvis MEDICAL HISTORY : Hypertension. Diabetes mellitus type 2. SURGICAL HISTORY : Appendectomy. Cholecystectomy. ENCOUNTER: Initial ACUITY: 1 day PAIN SCALE: 0/10 LOCATION: abdomen TECHNIQUE: Volumetric scanning of the abdomen and pelvis was performed. Using automated exposure control and ad justment of the mA and/or kV according to patient size, radiation dose was kept as low as reasonably achievable to obtain optimal diagnostic quality images. DICOM format image data is available electro nically for review and comparison. FINDINGS: LOWER LUNGS: Moderate cardiomegaly without pericardial effusion. LIVER: Mild intrahepatic and extrahepatic biliary prominence is again seen and remains long-term stable in t his patient status post cholecystectomy. No cira dilatation. The liver is without mass. Portal vein is patent. SPLEEN: Normal size without lesion. PANCREAS: Within normal limits. KIDNEYS: There is a 1.4 cm stone involving the left UPJ. There is resulting mild hydronephrosis as well as mil d stranding of the perinephric fat. No perinephric fluid collections are appreciated. Right kidney is unremarkable. ADRENAL GLANDS: Within normal limits. VASCULAR: There is no aortic aneurysm. BOWEL/MESENTERY: The stomach, small bowel, and colon demonstrate no acute abnormality. There is no free intraperitone al air or fluid. Scattered colonic diverticuli without acute inflammation. ABDOMINAL WALL: Within normal limits. RETROPERITONEUM: There is no lymphadenopathy. BLADDER: No wall thickening or mass. REPRODUCTIVE: Within normal limits. INGUINAL: There is no lymphadenopathy or hernia. MUSCULOSKELETAL: Prior cement augmentation of T11. A degenerative and scoliotic lumbar spine. No acute fracture. CONCLUSION: 1. No signs of acute trauma. 2. 14 mm left UPJ stone with obstruction. Kaen Stanley Jr., MD on April 10, 2017 at 20:41 Board Certified Radiologist. This report was verified electronically.
--- NOTE | 2017-04-10 20:53 | RADRPT ---
EXAM DATE/TIME: 04/10/2017 20:13 [facility] COMPARISON: No previous studies available for comparison. INDICATIONS : Trauma, fall. IV CONTRAST: 100 cc Omnipaque 350 (iohexol) IV ; Cumulative dose for multiple exams. RADIATION DOSE: 7.31 CTDIvol (mGy) MEDICAL HISTORY : Hypertension. Diabetes mellitus type 2. SURGICAL HISTORY : Mastectomy, left. Kyphoplasty. ENCOUNTER: Initial ACUITY: 1 day PAIN SCALE: 0/10 LOCATION: chest TECHNIQUE: Volumetric scanning of the chest was performed. Using automated exposure control and adjustment of t he mA and/or kV according to patient size, radiation dose was kept as low as reasonably achievable to obtain optimal diagnostic quality images. DICOM format image data is available electronically for review and comparison. Follow-up recommendations for detected pulmonary nodules are based at a minimum on nodule size and pa tient risk factors according to Fleischner Society Guidelines. FINDINGS: LUNGS: There is no consolidation or pneumothorax. No concerning pulmonary nodule is visualized. PLEURA: There is no pleural thickening or pleural effusion. MEDIASTINUM: Mild cardiomegaly without pericardial effusion. Coronary artery and aortic atherosclerotic calcificat ions. Pulmonary arteries and aorta are normal in caliber. No mass or adenopathy. 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 AXILLAE: Within normal limits. No lymphadenopathy. SKELETAL: Within normal limits for patient age. MISCELLANEOUS: Prior cement augmentation of 2 thoracic vertebral bodies. Port-A-Cath overlies the right chest. CONCLUSION: 1. Cardiomegaly. 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 Kane Stanley Jr., MD on April 10, 2017 at 20:48 Board Certified Radiologist. This report was verified electronically.
--- NOTE | 2017-04-10 21:01 | RADRPT ---
EXAM DATE/TIME: 04/10/2017 20:13 [facility] COMPARISON: CT ABDOMEN & PELVIS W CONTRAST, April 16, 2015, 17:40. INDICATIONS : Trauma, fall. IV CONTRAST: 100 cc Omnipaque 350 (iohexol) IV ; Cumulative dose for multiple exams. RADIATION DOSE: CTDIvol (mGy) ; Reconstructed from previous dataset, no dose MEDICAL HISTORY : Diabetes mellitus type 2. Hypertension. SURGICAL HISTORY : Kyphoplasty. ENCOUNTER: Initial ACUITY: 1 day PAIN SCALE: 5/10 LOCATION: Paraspinal TECHNIQUE: Volumetric scanning of the lumbar spine was performed. Multiplanar reconstructions in the sagittal, coronal and oblique axial planes were performed. Using automated exposure control and adjustment of the mA and/or kV according to patient size, radiation dose was kept as low as reasonably achievable t o obtain optimal diagnostic quality images. DICOM format image data is available electronically for review and comparison. FINDINGS: CONUS MEDULLARIS: Normal. PARASPINAL SOFT TISSUES: Normal. LUMBAR CORD: Normal. DURAL SAC: Normal. There is cement augmentation changes seen involving T12 with vertebral plana. There is an old munir sepideh fracture involving L1. It is new from 2016 but chronic in nature. No acute compression fracture observed. A scoliotic curvature noted. L1-L2: The disc, uncovertebral joints, central canal, foramina, and facets are normal. L3-L4: Disc space narrowing with vacuum disc phenomenon and broad based disc bulge. Mild ligamentum flavum h ypertrophy of the facets. Mild narrowing of the lateral recesses and neural foramina bilaterally but more pronounced on the right. Central canal remains patent. CONCLUSION: 1. No fracture or dislocation. 2. Advanced degenerative changes and scoliotic curvature as detailed above. 3. Old T12 and L1 compression deformities. Kane Stanley Jr., MD on April 10, 2017 at 20:55 Board Certified Radiologist. This report was verified electronically.
--- NOTE | 2017-04-10 21:02 | RADRPT ---
EXAM DATE/TIME: 04/10/2017 20:13 [facility] COMPARISON: No previous studies available for comparison. INDICATIONS : Trauma, fall. IV CONTRAST: 100 cc Omnipaque 350 (iohexol) IV ; Cumulative dose for multiple exams. RADIATION DOSE: CTDIvol (mGy) ; Reconstructed from previous dataset, no dose MEDICAL HISTORY : Hypertension. Diabetes mellitus type 2. SURGICAL HISTORY : Kyphoplasty. ENCOUNTER: Initial ACUITY: 1 day PAIN SCALE: 5/10 LOCATION: Paraspinal TECHNIQUE: Volumetric scanning of the thoracic spine was performed. Multiplanar reconstructions in the sagittal , coronal and oblique axial planes were performed. Using automated exposure control and adjustment o f the mA and/or kV according to patient size, radiation dose was kept as low as reasonably achievable to obtain optimal diagnostic quality images. DICOM format image data is available electronically fo r review and comparison. FINDINGS: Diffuse osteopenia. Prior cement augmentation of T11 and T12. There is vertebra plana at T12. No acut e compression fractures. Diffuse mild disc space narrowing and mild anterior osteophyte production no jannet. T1-T2: Normal. T2-T3: The thecal sac has a normal diameter. No evidence of disc bulge or protrusion. T3-T4: The thecal sac has a normal diameter. No evidence of disc bulge or protrusion. T4-T5: The thecal sac has a normal diameter. No evidence of disc bulge or protrusion. T5-T6: The thecal sac has a normal diameter. No evidence of disc bulge or protrusion. T6-T7: The thecal sac has a normal diameter. No evidence of disc bulge or protrusion. T7-T8: The thecal sac has a normal diameter. No evidence of disc bulge or protrusion. T8-T9: The thecal sac has a normal diameter. No evidence of disc bulge or protrusion. T9-T10: The thecal sac has a normal diameter. No evidence of disc bulge or protrusion. T10-T11: The thecal sac has a normal diameter. No evidence of disc bulge or protrusion. T11-T12: The thecal sac has a normal diameter. No evidence of disc bulge or protrusion. T12-L1: The thecal sac has a normal diameter. No evidence of disc bulge or protrusion. CONCLUSION: 1. No fracture or dislocation. 2. Prior cement augmentation of T11 and T12. 3. Diffuse mild degenerative changes. Kane Stanley Jr., MD on April 10, 2017 at 20:59 Board Certified Radiologist. This report was verified electronically.
[2017-04-10 21:03] VITALS: BP 179/79; PULSE 79; RESP 18; O2SAT 99
[2017-04-10] MEDS ORDERED: ONDANSETRON HCL 4 MG/2 ML VIAL IV PUSH ONE (21:15)
[2017-04-10 21:46] LABS: BILIRUBIN, URINE NEG (NEG); BLOOD, URINE TRACE (NEG); GLUCOSE,URINE 70 mg/dL (NEG); KETONE, URINE TRACE mg/dL (NEG); NITRITE,URINE NEG (NEG); SQUAMOUS EPITHELIAL CELL URINE <1 /hpf (0-5); URINE COLOR LIGHT-YELLOW (YELLW/STRAW); URINE LEUKOCYTE ESTERASE SMALL (NEG)
[2017-04-10] MEDS ORDERED: cefTRIAXone INJ 1,000 MG in SODIUM CHLORIDE 0.9% INJ 100 ML IV ONE (22:00)
[2017-04-10] MEDS ORDERED: NALOXONE HCL 0.4 MG/ML AMP IV PUSH PRN (22:15)
[2017-04-10] MEDS ORDERED: POTA-163 PO (22:31)
[2017-04-10] MEDS ORDERED: FURO1TAB60 PO (22:31)
[2017-04-10] MEDS ORDERED: PRIL20TA2 PO (22:31)
[2017-04-10] MEDS ORDERED: NEUR300C PO (22:31)
--- NOTE | 2017-04-10 23:02 | HHI.HP ---
[facility] Primary Care Physician Nancy Parisi MD Admission Diagnosis ureterolithiasis, obstructive uropathy, intractable pain Diagnoses: Chief Complaint: Intractable left flank pain Travel History International Travel<30 Days: No Contact w/Intl Traveler <30 Da: No Traveled to Known Affected Are: No History of Present Illness Pleasant 81-year-old female with a history of diabetes, chronic back pain, GERD , fibromyalgia, hypothyroid, hypertension and overactive bladder was brought to the ED after a fall at home. She complains of 8 out of 10 left flank pain with radiation to her back that is worse with movement and palpation, with no associated symptoms. She states she was just walking around the house with her walker when she tripped and fell back into a TV stand. She denies any loss of consciousness. She denies any chest pain, shortness of breath, fever or chills. She lives at home with her daughter and grand kids and states they were out of town at the time. She states she normally gets around pretty well with her walker. She does have a fentanyl patch on that takes the edge off her back pain but states it is not helping with her current exacerbation of left flank pain. She denies any pain or burning sensation with urination. I tried to get a hold of Patient's daughter Christi # [phone], message was left. Review of Systems Except as stated in HPI: all other systems reviewed are Neg Past Family Social History Past Medical History Breast cancer Diabetes Chronic back pain GERD Fibromyalgia Hypothyroidism Hypertension Overactive bladder Past Surgical History Left mastectomy Right knee arthroplasty Cholecystectomy Appendectomy Reported Medications Reported Meds & Active Scripts Active Reported Potassium Chloride ER (Potassium Chloride) 20 Meq Tab 20 Meq PO EVERY OTHER DAY Lasix (Furosemide) 40 Mg Tab 40 Mg PO EVERY OTHER DAY Prilosec (Omeprazole Magnesium) 20 Mg Tab 20 Mg PO DAILY Neurontin (Gabapentin) 300 Mg Cap 300 Mg PO TID Metoprolol Tartrate 25 Mg Tab 12.5 Mg PO BID Atorvastatin (Atorvastatin Calcium) 10 Mg Tab 10 Mg PO HS Lantus Inj (Insulin Glargine) 1,000 Unit/10 Ml Vial 10 Units SQ HS Aspirin Low Dose (Aspirin) 81 Mg Chew 81 Mg CHEW DAILY Hydralazine HCl 25 Mg Tablet 25 Mg PO BID Nateglinide 120 Mg Tab 120 Mg PO TIDAC Clonazepam 0.5 Mg Tab 0.25 Mg PO HS Actos (Pioglitazone HCl) 30 Mg Tab 30 Mg PO DAILY Fentanyl Patch 72 HR (Fentanyl) 50 Mcg/Hr Patch 50 Mcg T-DERMAL Q72H Remove old patch when new one placed. Levoxyl (Levothyroxine Sodium) 88 Mcg Tab 88 Mcg PO DAILY Allergies: Coded Allergies: aspirin (Unverified Allergy, Intermediate, Burning, 04/10/17) Fish Containing Products (Unverified Allergy, Unknown, 04/10/17) adhesive (Unverified Allergy, Unknown, 04/10/17) amlodipine (Unverified Allergy, Unknown, 04/10/17) bupropion (Unverified Allergy, Unknown, 04/10/17) duloxetine (Unverified Allergy, Unknown, 04/10/17) escitalopram (Unverified Allergy, Unknown, 04/10/17) pseudoephedrine (Unverified Allergy, Unknown, 04/10/17) rosiglitazone (Unverified Allergy, Unknown, 04/10/17) scopolamine (Unverified Allergy, Unknown, 04/10/17) valsartan (Unverified Allergy, Unknown, 04/10/17) Active Ordered Medications Current Medications Medications (Trade) Dose Ordered Sig/Faheem Route Start Time Stop Time Status Last Admin Sodium Chloride 1,000 ml @ 100 mls/hr Q10H IV 04/10/17 22:11 04/10/17 23:54 (NS Flush) 2 ml UNSCH PRN IV FLUSH 04/10/17 22:15 (NS Flush) 2 ml BID IV FLUSH 04/11/17 09:00 (Narcan Inj) 0.4 mg UNSCH PRN IV PUSH 04/10/17 22:15 Ceftriaxone Sodium 1000 mg/ Sodium Chloride 100 ml @ 200 mls/hr Q24H IV 04/11/17 22:00 Family History Mom: Diabetes Social History Patient denies any tobacco, alcohol or illicit drug use Physical Exam Vital Signs Vital Signs Date Time Temp Pulse Resp B/P (MAP) Pulse Ox O2 Delivery O2 Flow Rate FiO2 04/10/17 21:03 79 18 179/79 (112) 99 Room Air 04/10/17 19:51 16 97 Room Air 04/10/17 19:00 80 18 176/87 (116) 98 Room Air 04/10/17 17:35 97.9 72 18 154/85 (108) 96 Room Air Physical Exam GENERAL: This is a well-nourished, well-developed patient, in moderate amount of pain SKIN: No rashes, ecchymoses or lesions. Cool and dry. HEAD: Atraumatic. Normocephalic. EYES: Pupils equal round and reactive. ENT: Nose without bleeding, purulent drainage or septal hematoma. Airway patent. NECK: Trachea midline. No JVD or lymphadenopathy. CARDIOVASCULAR: Regular rate and rhythm without murmurs, gallops, or rubs. RESPIRATORY: Diminished at bases. No wheezes, rales, or rhonchi. GASTROINTESTINAL: Left lower abdominal tenderness, soft, nondistended. Left CVA tenderness MUSCULOSKELETAL: Extremities without clubbing, cyanosis, or edema. No calf tenderness. Negative Homans sign bilaterally. NEUROLOGICAL: Awake and alert. Motor and sensory grossly within normal limits. normal speech. Laboratory Laboratory Tests Test 04/10/17 18:20 04/10/17 19:08 04/10/17 21:23 White Blood Count 8.9 Red Blood Count 4.63 Hemoglobin 14.7 Hematocrit 43.7 Mean Corpuscular Volume 94.3 Mean Corpuscular Hemoglobin 31.8 Mean Corpuscular Hemoglobin Concent 33.7 Red Cell Distribution Width 14.5 Platelet Count 218 Mean Platelet Volume 9.4 Neutrophils (%) (Auto) 77.4 Lymphocytes (%) (Auto) 14.7 Monocytes (%) (Auto) 7.1 Eosinophils (%) (Auto) 0.2 Basophils (%) (Auto) 0.6 Neutrophils # (Auto) 6.9 Lymphocytes # (Auto) 1.3 Monocytes # (Auto) 0.6 Eosinophils # (Auto) 0.0 Basophils # (Auto) 0.1 CBC Comment DIFF FINAL Differential Comment Prothrombin Time 11.1 Prothromb Time International Ratio 1.1 Activated Partial Thromboplast Time 28.2 Blood Urea Nitrogen 20 Creatinine 1.06 Random Glucose 173 Total Protein 7.3 Albumin 3.9 Calcium Level 9.9 Alkaline Phosphatase 101 Aspartate Amino Transf (AST/SGOT) 20 Alanine Aminotransferase (ALT/SGPT) 18 Total Bilirubin 1.9 Sodium Level 140 Potassium Level 3.4 Chloride Level 105 Carbon Dioxide Level 27.9 Anion Gap 7 Estimat Glomerular Filtration Rate 50 Urine Color LIGHT-YELLOW Urine Turbidity CLEAR Urine pH 7.0 Urine Specific [place] 1.020 Urine Protein NEG Urine Glucose (UA) 70 Urine Ketones TRACE Urine Occult Blood TRACE Urine Nitrite NEG Urine Bilirubin NEG Urine Urobilinogen LESS THAN 2.0 Urine Leukocyte Esterase SMALL Urine RBC 6 Urine WBC 11 Urine Squamous Epithelial Cells <1 Microscopic Urinalysis Comment CULTURE INDICATED Date/Time Source Procedure Growth Status 04/10/17 21:23 Urine Clean Catch Urine Culture Pending Received Result Diagram: 04/10/17 1820 04/10/17 190 Imaging Last Impressions Abdomen/Pelvis CT 04/10/17 175 Signed Impressions: Service Date/Time: March 20:09 - CONCLUSION: 1. No signs of acute trauma. 2. 14 mm left UPJ stone with obstruction. Kane Stanley Jr., MD Thoracic Spine CT 04/10/17 0000 Signed Impressions: Service Date/Time: March 20:13 - CONCLUSION: 1. No fracture or dislocation. 2. Prior cement augmentation of T11 and T12. 3. Diffuse mild degenerative changes. Kane Satnley Jr., MD Shoulder X-Ray 04/10/17 0000 Signed Impressions: Service Date/Time: March 18:51 - CONCLUSION: Suspected chronic rotator cuff injury. No acute abnormality. Kaen Stanley Jr., MD Pelvis X-Ray 04/10/17 0000 Signed Impressions: Service Date/Time: March 18:49 - CONCLUSION: No acute abnormality. Kane Stanley Jr., MD Lumbar Spine CT 04/10/17 0000 Signed Impressions: Service Date/Time: March 20:13 - CONCLUSION: 1. No fracture or dislocation. 2. Advanced degenerative changes and scoliotic curvature as detailed above. 3. Old T12 and L1 compression deformities. Kane Stanley Jr., MD Head CT 04/10/17 0000 Signed Impressions: Service Date/Time: March 20:04 - CONCLUSION: No acute disease. Kane Stanley Jr., MD Chest X-Ray 04/10/17 0000 Signed Impressions: Service Date/Time: March 18:46 - CONCLUSION: No acute disease. Kane Stanley Jr., MD Chest CT 04/10/17 0000 Signed Impressions: Service Date/Time: March 20:13 - CONCLUSION: 1. Cardiomegaly. 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 Kane Stanley Jr., MD Cervical Spine CT 04/10/17 0000 Signed Impressions: Service Date/Time: March 20:05 - CONCLUSION: 1. No fracture or dislocation. 2. Degenerative changes as detailed above. MD Esther Dick Jr. VTE Risk Assessment Caprini VTE Risk Assessment: No/Low Risk (score <= 1) Caprini Risk Assessment Model Point Value = 1 Point Value = 2 Point Value = 3 Point Value = 5 Age 41-60 Minor surgery BMI > 25 kg/m2 Swollen legs Varicose veins or History of unexplained or recurrent spontaneous Oral contraceptives or hormone replacement Sepsis (< 1 month) Serious lung disease, including pneumonia (< 1 month) Abnormal pulmonary function Acute myocardial infarction Congestive heart failure (< 1 month) History of inflammatory bowel disease Medical patient at bed rest Age 61-74 Arthroscopic surgery Major open surgery (> 45 min) Laparoscopic surgery (> 45 min) Malignancy Confined to bed (> 72 hours) Immobilizing plaster cast Central venous access Age >= 75 History of VTE Family history of VTE Factor V Leiden Prothrombin [id number] Lupus anticoagulant Anticardiolipin antibodies Elevated serum homocysteine Heparin-induced thrombocytopenia Other congenital or acquired thrombophilia Stroke (< 1 month) Elective arthroplasty Hip, pelvis, or leg fracture Acute spinal cord injury (< 1 month) Prophylaxis Regimen Total Risk Factor Score Risk Level Prophylaxis Regimen 0-1 Low Early ambulation 2 Moderate Order ONE of the following: *Sequential Compression Device (SCD) *Heparin 5000 units SQ BID 3-4 Higher Order ONE of the following medications: *Heparin 5000 units SQ TID *Enoxaparin/Lovenox 40 mg SQ daily (WT < 150 kg, CrCl > 30 mL/min) *Enoxaparin/Lovenox 30 mg SQ daily (WT < 150 kg, CrCl > 10-29 mL/min) *Enoxaparin/Lovenox 30 mg SQ BID (WT < 150 kg, CrCl > 30 mL/min) AND/OR *Sequential Compression Device (SCD) 5 or more Highest Order ONE of the following medications: *Heparin 5000 units SQ TID (Preferred with Epidurals) *Enoxaparin/Lovenox 40 mg SQ daily (WT < 150 kg, CrCl > 30 mL/min) *Enoxaparin/Lovenox 30 mg SQ daily (WT < 150 kg, CrCl > 10-29 mL/min) *Enoxaparin/Lovenox 30 mg SQ BID (WT < 150 kg, CrCl > 30 mL/min) AND *Sequential Compression Device (SCD) Assessment and Plan Problem List: (1) Ureterolithiasis ICD Code: N20.1 - Calculus of ureter Status: Acute (2) Obstructive uropathy ICD Code: N13.9 - Obstructive and reflux uropathy, unspecified Status: Acute Assessment and Plan Pleasant 81-year-old female with a history of diabetes, chronic back pain, GERD , fibromyalgia, hypothyroid, hypertension and overactive bladder was brought to the ED after a fall at home. Ureterolithiasis with obstructive uropathy Abdomen CT reviewed and shows a 1.4 cm left UPJ stone with obstruction -Consult urology for recommendations -Pain management with IV morphine -Nothing by mouth -IVF Mild UTI Abnormal UA -Rocephin IV daily -Urine culture pending Fall at home -PT eval and treat -Patient must use walker Hypertension, chronic -Resumed home medications, monitor vitals Diabetes, chronic -Accu-Cheks with sliding scale insulin -Hold home PO medications while in hospital -Cont Levemir DVT prophylaxis: SCDs Discussed Condition With Patient and RN Physician Certification 2 Midnight Certification Type: Admission for Inpatient Services Order for Inpatient Services The services are ordered in accordance with Medicare regulations or non- Medicare payer requirements, as applicable. In the case of services not specified as inpatient-only, they are appropriately provided as inpatient services in accordance with the 2-midnight benchmark. Estimated LOS (days): 2 days is the estimated time the patient will need to remain in the hospital, assuming treatment plan goals are met and no additional complications. Post-Hospital Plan: Home Ivette Quiñones Apr 10, 2017 23:02
[2017-04-10 23:15] VITALS: BP 148/85; PULSE 86; RESP 18; O2SAT 95
[2017-04-10] MEDS: SODIUM CHLOR 0.9% 1000 ML INJ 1,000 ML IV SCH (23:54)
[2017-04-11] VITALS (7 sets, daily range): BP systolic 95–177; BP diastolic 51–87; PULSE 63–119; RESP 16–20; TEMP 98–98.5; O2SAT 93–100
[2017-04-11] MEDS ORDERED: GLUCAGON 1 MG/ML VIAL OTHER PRN (00:30)
[2017-04-11] MEDS: hydrALAZINE HCL 25 MG TAB PO SCH ×3 (00:30→20:55)
[2017-04-11] MEDS ORDERED: MORPHINE SULFATE 2 MG/ML INJ IV PUSH PRN (00:30)
[2017-04-11] MEDS: METOPROLOL TARTRATE 25 MG TAB PO SCH ×3 (00:30→20:55)
[2017-04-11] MEDS ORDERED: DEXTROSE 50% IN WATER 50 ML VIAL(D50) IV PUSH PRN (00:30)
[2017-04-11] MEDS: clonazePAM 0.5 MG TAB PO SCH ×2 (01:04→21:00)
[2017-04-11] MEDS: ATORVASTATIN 10 MG TAB PO SCH ×2 (01:04→21:08)
[2017-04-11] MEDS ORDERED: HYDROmorphone HCL PF 2 MG/ML VIAL IV PUSH ONE (05:00)
[2017-04-11] MEDS ORDERED: ONDANSETRON HCL 4 MG/2 ML VIAL IV PUSH ONE (07:15)
[2017-04-11] MEDS: LEVOTHYROXINE SODIUM 88 MCG TAB PO SCH (07:43)
[2017-04-11] MEDS: SODIUM CHLORIDE 0.9% FLUSH 10 ML FLUSH IV FLUSH SCH ×2 (09:00→21:00)
[2017-04-11 09:16] LABS: AUTOMATED NEUTROPHIL # 7.4 TH/MM3 (1.8-7.7); BASOPHIL % 0.1 % (0.0-2.0); HEMATOCRIT 41.1 % (35.0-46.0); HEMOGLOBIN 14.2 GM/DL (11.6-15.3); LYMPH % 3.2 % (9.0-44.0); LYMPHOCYTE # 0.2 TH/MM3 (1.0-4.8); MEAN CORPUSCULAR HEMOGLOBIN 32.7 PG (27.0-34.0); MEAN CORPUSCULAR HGB CONC 34.5 % (32.0-36.0); MEAN PLATELET VOLUME 9.9 FL (7.0-11.0); MONO % 0.8 % (0.0-8.0); MONOCYTE # 0.1 TH/MM3 (0-0.9); NEUT % 95.9 % (16.0-70.0); PLATELET COUNT 183 TH/MM3 (150-450); RED BLOOD COUNT 4.33 MIL/MM3 (4.00-5.30); RED CELL DISTRIBUTION WIDTH 14.3 % (11.6-17.2); WHITE BLOOD COUNT 7.7 TH/MM3 (4.0-11.0)
[2017-04-11 09:52] LABS: BICARBONATE 22.7 MEQ/L (21.0-32.0); CALCIUM 9.2 MG/DL (8.5-10.1); CREATININE 1.55 MG/DL (0.50-1.00)
[2017-04-11] MEDS: INSULIN ASPART SUPPLEMENTAL SCALE SQ SCH ×4 (10:20→21:00)
[2017-04-11] MEDS: POTASSIUM CHLORIDE 20 MEQ CONTROLLED RELEASE TAB PO SCH (10:43)
[2017-04-11] MEDS: FUROSEMIDE 40 MG TAB PO SCH (10:44)
[2017-04-11] MEDS: PANTOPRAZOLE SOD 20 MG DELAYED RELEASE TAB PO SCH (10:44)
[2017-04-11] MEDS: SODIUM CHLOR 0.9% 1000 ML INJ 1,000 ML IV SCH (10:44)
[2017-04-11] MEDS: GABAPENTIN 300 MG CAP PO SCH ×3 (10:47→17:47)
--- NOTE | 2017-04-11 11:22 | PD.CONS ---
[facility] Service Urology Consult Requested By Dr. Agarwal Reason for Consult Left ureteropelvic junction calculus Primary Care Physician Nancy Parisi MD Diagnosis: (1) Ureterolithiasis ICD Code: N20.1 - Calculus of ureter (2) Obstructive uropathy ICD Code: N13.9 - Obstructive and reflux uropathy, unspecified History of Present Illness 81-year-old female with multiple medical problems who presented to emergency room after sustaining a fall at home. Workup included a CT scan of the abdomen and pelvis that demonstrated a 1.4 cm obstructing left ureteropelvic junction calculus. Upon further questioning the patient reports she is been having some pain involving the left flank pain over the past several days. She denies dysuria or gross hematuria. She does have a history of chronic back pain managed with a fentanyl patch. I reviewed the actual CT scan images that demonstrated a 14 mm left ureteropelvic junction calculus with mild left hydronephrosis. Review of Systems Constitutional: DENIES: Fever, Chills Gastrointestinal: COMPLAINS OF: Abdominal pain (left side) Genitourinary: DENIES: Hematuria Musculoskeletal: COMPLAINS OF: Back pain (left flank) Except as stated in HPI: all other systems reviewed are Neg Past Family Social History Past Medical History Diabetes Chronic back pain GERD Fibromyalgia Hypothyroidism Hypertension Overactive bladder Breast cancer history Past Surgical History Status post left mastectomy Status post cholecystectomy Status post appendectomy Status post right knee surgery Reported Medications Refer to EMR Allergies: Coded Allergies: aspirin (Unverified Allergy, Intermediate, Burning, 04/10/17) Fish Containing Products (Unverified Allergy, Unknown, 04/10/17) adhesive (Unverified Allergy, Unknown, 04/10/17) amlodipine (Unverified Allergy, Unknown, 04/10/17) bupropion (Unverified Allergy, Unknown, 04/10/17) duloxetine (Unverified Allergy, Unknown, 04/10/17) escitalopram (Unverified Allergy, Unknown, 04/10/17) pseudoephedrine (Unverified Allergy, Unknown, 04/10/17) rosiglitazone (Unverified Allergy, Unknown, 04/10/17) scopolamine (Unverified Allergy, Unknown, 04/10/17) valsartan (Unverified Allergy, Unknown, 04/10/17) Active Ordered Medications Refer to EMR Family History Diabetes mellitus (mother) Social History Denies tobacco, alcohol or intravenous drug abuse history Physical Exam Vital Signs Date Time Temp Pulse Resp B/P (MAP) Pulse Ox O2 Delivery O2 Flow Rate FiO2 04/11/17 09:30 100 18 107/65 (79) 100 Nasal Cannula 2.00 04/11/17 07:19 119 16 132/87 (102) 94 Nasal Cannula 2.00 04/11/17 05:19 63 16 177/86 (116) 100 Nasal Cannula 2.00 04/11/17 03:00 84 18 127/77 (94) 96 Room Air 04/11/17 01:07 82 18 134/69 (90) 97 Room Air 04/10/17 23:15 86 18 148/85 (106) 95 Room Air 04/10/17 21:03 79 18 179/79 (112) 99 Room Air 04/10/17 19:51 16 97 Room Air 04/10/17 19:00 80 18 176/87 (116) 98 Room Air 04/10/17 17:35 97.9 72 18 154/85 (108) 96 Room Air Physical Exam GENERAL: This is a well-nourished, well-developed patient, in no apparent distress. SKIN: No rashes, ecchymoses or lesions. Cool and dry. HEAD: Atraumatic. Normocephalic. No temporal or scalp tenderness. EYES: Pupils equal round and reactive. Extraocular motions intact. No scleral icterus. No injection or drainage. ENT: Nose without bleeding, purulent drainage or septal hematoma. Throat without erythema, tonsillar hypertrophy or exudate. Uvula midline. Airway patent. NECK: Trachea midline. No JVD or lymphadenopathy. Supple, nontender, no meningeal signs. CARDIOVASCULAR: Regular rate and rhythm without murmurs, gallops, or rubs. RESPIRATORY: Clear to auscultation. Breath sounds equal bilaterally. No wheezes , rales, or rhonchi. GASTROINTESTINAL: Abdomen soft, non-tender, nondistended. No hepato-splenomegaly , or palpable masses. No guarding. GENITOURINARY: Bladder not distended, no CVA tenderness MUSCULOSKELETAL: Extremities without clubbing, cyanosis, or edema. No joint tenderness, effusion, or edema noted. No calf tenderness. Negative Homans sign bilaterally. NEUROLOGICAL: Awake and alert. Cranial nerves II through XII intact. Motor and sensory grossly within normal limits. Five out of 5 muscle strength in all muscle groups. Normal speech. Lab results reviewed: Yes Laboratory Tests Test 04/10/17 18:20 04/10/17 19:08 04/10/17 21:23 04/11/17 07:56 White Blood Count 8.9 7.7 Red Blood Count 4.63 4.33 Hemoglobin 14.7 14.2 Hematocrit 43.7 41.1 Mean Corpuscular Volume 94.3 95.0 Mean Corpuscular Hemoglobin 31.8 32.7 Mean Corpuscular Hemoglobin Concent 33.7 34.5 Red Cell Distribution Width 14.5 14.3 Platelet Count 218 183 Mean Platelet Volume 9.4 9.9 Neutrophils (%) (Auto) 77.4 95.9 Lymphocytes (%) (Auto) 14.7 3.2 Monocytes (%) (Auto) 7.1 0.8 Eosinophils (%) (Auto) 0.2 0.0 Basophils (%) (Auto) 0.6 0.1 Neutrophils # (Auto) 6.9 7.4 Lymphocytes # (Auto) 1.3 0.2 Monocytes # (Auto) 0.6 0.1 Eosinophils # (Auto) 0.0 0.0 Basophils # (Auto) 0.1 0.0 CBC Comment DIFF FINAL DIFF FINAL Differential Comment Prothrombin Time 11.1 Prothromb Time International Ratio 1.1 Activated Partial Thromboplast Time 28.2 Blood Urea Nitrogen 20 21 Creatinine 1.06 1.55 Random Glucose 173 220 Total Protein 7.3 Albumin 3.9 Calcium Level 9.9 9.2 Alkaline Phosphatase 101 Aspartate Amino Transf (AST/SGOT) 20 Alanine Aminotransferase (ALT/SGPT) 18 Total Bilirubin 1.9 Sodium Level 140 139 Potassium Level 3.4 3.0 Chloride Level 105 104 Carbon Dioxide Level 27.9 22.7 Anion Gap 7 12 Estimat Glomerular Filtration Rate 50 32 Urine Color LIGHT-YELLOW Urine Turbidity CLEAR Urine pH 7.0 Urine Specific [place] 1.020 Urine Protein NEG Urine Glucose (UA) 70 Urine Ketones TRACE Urine Occult Blood TRACE Urine Nitrite NEG Urine Bilirubin NEG Urine Urobilinogen LESS THAN 2.0 Urine Leukocyte Esterase SMALL Urine RBC 6 Urine WBC 11 Urine Squamous Epithelial Cells <1 Microscopic Urinalysis Comment CULTURE INDICATED Date/Time Source Procedure Growth Status 04/10/17 21:23 Urine Clean Catch Urine Culture Pending Received Result Diagram: 04/11/17 0756 04/11/17 0756 Personally reviewed images: Yes Imaging Last Impressions Abdomen/Pelvis CT 04/10/17 1758 Signed Impressions: Service Date/Time: March 20:09 - CONCLUSION: 1. No signs of acute trauma. 2. 14 mm left UPJ stone with obstruction. Kane Stanley Jr., MD Thoracic Spine CT 04/10/17 0000 Signed Impressions: Service Date/Time: March 20:13 - CONCLUSION: 1. No fracture or dislocation. 2. Prior cement augmentation of T11 and T12. 3. Diffuse mild degenerative changes. Kane Stanley Jr., MD Shoulder X-Ray 04/10/17 0000 Signed Impressions: Service Date/Time: March 18:51 - CONCLUSION: Suspected chronic rotator cuff injury. No acute abnormality. Kane Stanley Jr., MD Pelvis X-Ray 04/10/17 0000 Signed Impressions: Service Date/Time: March 18:49 - CONCLUSION: No acute abnormality. Kane Stanley Jr., MD Lumbar Spine CT 04/10/17 0000 Signed Impressions: Service Date/Time: March 20:13 - CONCLUSION: 1. No fracture or dislocation. 2. Advanced degenerative changes and scoliotic curvature as detailed above. 3. Old T12 and L1 compression deformities. Kane Stanley Jr., MD Head CT 04/10/17 0000 Signed Impressions: Service Date/Time: March 20:04 - CONCLUSION: No acute disease. Kane Stanley Jr., MD Chest X-Ray 04/10/17 0000 Signed Impressions: Service Date/Time: March 18:46 - CONCLUSION: No acute disease. Kane Stanley Jr., MD Chest CT 04/10/17 0000 Signed Impressions: Service Date/Time: March 20:13 - CONCLUSION: 1. Cardiomegaly. 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 Kane Stanley Jr., MD Cervical Spine CT 04/10/17 0000 Signed Impressions: Service Date/Time: March 20:05 - CONCLUSION: 1. No fracture or dislocation. 2. Degenerative changes as detailed above. Kane Stanley Jr., MD Assessment and Plan Assessment and Plan Urologic impression: #1 14 mm left ureteropelvic junction calculus #2 mild left hydronephrosis related to the obstructing calculus Plan: #1 keep patient nothing by mouth #2 bring the patient to the operating room suite today for cystoscopy, left retrograde pyelogram and left ureteral stent placement #3 will further manage the patient with outpatient shockwave lithotripsy Marco Trujillo MD Apr 11, 2017 11:22
[2017-04-11] MEDS ORDERED: PHENYLEPH/NS 1000 MCG/10 ML SYR IV ONE (12:00)
[2017-04-11] MEDS ORDERED: ONDANSETRON HCL 4 MG/2 ML VIAL IV ONE (12:00)
[2017-04-11] MEDS ORDERED: PROPOFOL 200 MG/20 ML AMP IV ONE (12:00)
[2017-04-11] MEDS ORDERED: DEXAMETHASONE SOD PHOS 4 MG/ML VIAL IV ONE (12:00)
[2017-04-11] MEDS ORDERED: LIDOCAINE HCL 1% PF 5 ML SYRINGE OTHER ONE (12:00)
[2017-04-11] MEDS ORDERED: ePHEDrine/NS 25 MG/5 ML SYRINGE IV ONE (12:00)
--- NOTE | 2017-04-11 14:40 | HHI.PR ---
Subjective Remarks Pt asleep but easily arousable. Pain controlled at this time. No nausea or vomiting. No chest pain or SOB Discussed w RN, Pt noted to have swelling on the right lower ext compared to the left. Per pt this is chronic for her but no prior hx of DVT and she is not on blood thinners. Objective Vitals Vital Signs Date Time Temp Pulse Resp B/P (MAP) Pulse Ox O2 Delivery O2 Flow Rate FiO2 04/11/17 09:30 100 18 107/65 (79) 100 Nasal Cannula 2.00 04/11/17 07:19 119 16 132/87 (102) 94 Nasal Cannula 2.00 04/11/17 05:19 63 16 177/86 (116) 100 Nasal Cannula 2.00 04/11/17 03:00 84 18 127/77 (94) 96 Room Air 04/11/17 01:07 82 18 134/69 (90) 97 Room Air 04/10/17 23:15 86 18 148/85 (106) 95 Room Air 04/10/17 21:03 79 18 179/79 (112) 99 Room Air 04/10/17 19:51 16 97 Room Air 04/10/17 19:00 80 18 176/87 (116) 98 Room Air 04/10/17 17:35 97.9 72 18 154/85 (108) 96 Room Air I/O 04/10/17 04/10/17 04/10/17 04/11/17 04/11/17 04/11/17 07:00 15:00 23:00 07:00 15:00 23:00 Intake Total 100 ml Balance 100 ml Intake IV Total 100 ml Result Diagram: 04/11/17 0756 04/11/17 0756 Imaging Last Impressions Abdomen/Pelvis CT 04/10/17 1758 Signed Impressions: Service Date/Time: March 20:09 - CONCLUSION: 1. No signs of acute trauma. 2. 14 mm left UPJ stone with obstruction. Kane Stanley Jr., MD Thoracic Spine CT 04/10/17 0000 Signed Impressions: Service Date/Time: March 20:13 - CONCLUSION: 1. No fracture or dislocation. 2. Prior cement augmentation of T11 and T12. 3. Diffuse mild degenerative changes. Kane Stanley Jr., MD Shoulder X-Ray 04/10/17 0000 Signed Impressions: Service Date/Time: March 18:51 - CONCLUSION: Suspected chronic rotator cuff injury. No acute abnormality. Kane Stanley Jr., MD Pelvis X-Ray 04/10/17 0000 Signed Impressions: Service Date/Time: March 18:49 - CONCLUSION: No acute abnormality. Kane Stanley Jr., MD Lumbar Spine CT 04/10/17 0000 Signed Impressions: Service Date/Time: March 20:13 - CONCLUSION: 1. No fracture or dislocation. 2. Advanced degenerative changes and scoliotic curvature as detailed above. 3. Old T12 and L1 compression deformities. Kane Stanley Jr., MD Head CT 04/10/17 0000 Signed Impressions: Service Date/Time: March 20:04 - CONCLUSION: No acute disease. Kane Stanley Jr., MD Chest X-Ray 04/10/17 0000 Signed Impressions: Service Date/Time: March 18:46 - CONCLUSION: No acute disease. Kane Stanley Jr., MD Chest CT 04/10/17 0000 Signed Impressions: Service Date/Time: March 20:13 - CONCLUSION: 1. Cardiomegaly. 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 Kane Stanley Jr., MD Cervical Spine CT 04/10/17 0000 Signed Impressions: Service Date/Time: March 20:05 - CONCLUSION: 1. No fracture or dislocation. 2. Degenerative changes as detailed above. Kane Stanley Jr., MD Objective Remarks GENERAL: Laying in bed, appears comfortable. EYES: EOMI. ENT: Nose without drainage. Airway patent. NECK: Trachea midline. CARDIOVASCULAR: Regular rate and rhythm without murmurs RESPIRATORY: Diminished at bases. No wheezes GASTROINTESTINAL:soft, NT at this time. no guarding or rebound. MUSCULOSKELETAL: Right ext swelling noted. No erythema or calf tenderness. NEUROLOGICAL: Awake and alert. Motor and sensory grossly within normal limits. normal speech. A/P Problem List: (1) Ureterolithiasis ICD Code: N20.1 - Calculus of ureter Status: Acute (2) Obstructive uropathy ICD Code: N13.9 - Obstructive and reflux uropathy, unspecified Status: Acute Assessment and Plan Pleasant 81-year-old female with a history of diabetes, chronic back pain, GERD , fibromyalgia, hypothyroid, hypertension and overactive bladder was brought to the ED after a fall at home. Ureterolithiasis with obstructive uropathy Abdomen CT reviewed and shows a 1.4 cm left UPJ stone with obstruction -Urology evaluated the patient and recommended cystoscopy and left retrograde pyelogram w possible stent placement. -continue Pain management -NPO and give IVFs. -EKG for pre-op Abnormal UA, concerning for UTI -Rocephin IV daily -final Urine culture pending Fall at home -PT eval and treat -Patient must use walker Hypertension, chronic -on home medications, monitor vitals Diabetes, chronic -Accu-Cheks with sliding scale insulin -Hold home PO medications while in hospital -Cont Levemir when tolerating PO DVT prophylaxis: SCDs Discharge Planning going to OR today EKG pending Bibi Li MD Apr 11, 2017 14:40
--- NOTE | 2017-04-11 16:10 | RADRPT ---
EXAM DATE/TIME: 04/11/2017 15:48 [facility] COMPARISON: No previous studies available for comparison. INDICATIONS : Right leg swelling. MEDICAL HISTORY : Hypothyroidism. Hypercholesterolemia. Hypertension. Hard of hearing. Coronary artery disease. Arth ritis. Diabetes. Depression. Anxiety. Chemotherapy. Breast cancer. SURGICAL HISTORY : Tonsillectomy. Cholecystectomy. Appendectomy. Left masectomy. ENCOUNTER: Initial ACUITY: 1 day PAIN SCORE: 2/10 LOCATION: Right leg. TECHNIQUE: Venous ultrasound of the leg was performed from the inguinal ligament to the proximal calf. Real-leidy e, color Doppler and spectral tracing, compression and augmentation techniques were used. FINDINGS: There is normal compressibility of the deep venous system from the inguinal region to the proximal ca lf. No echogenic clot is seen in the lumen of the common femoral, femoral, popliteal, and posterior tibial veins. There is a normal response of the venous system to proximal and distal augmentation an d respiration. CONCLUSION: No DVT is identified within the right lower extremity. Marco Antonio Zaragoza MD on April 11, 2017 at 16:07 Board Certified Radiologist. This report was verified electronically.
[2017-04-11] MEDS ORDERED: ceFAZolin INJ 1,000 MG VIAL ONE (18:23)
--- NOTE | 2017-04-11 19:33 | PD.OP ---
Operative Report Date of Surgery: Apr 11, 2017 Preoperative Diagnosis: (1) Renal calculus, left Postoperative Diagnosis: (1) Renal calculus, left Procedure: Cystoscopy, left retrograde pyelogram and left ureteral stent placement Anesthesia: General Surgeon: Marco Trujillo Smash Hand(s): None Operation and Findings: Indication for procedures: Case of a pleasant 81 y.o. female with a 14 mm left ureteropelvic junction calculus who presents now for cystoscopy, left retrograde pyelogram and left ureteral stent placement. Operative procedure in detail: Patient was brought to the operating room suite and placed supine on the OR table. She was then placed under general anesthesia. She was then repositioned in the dorsolithotomy position and prepped and draped in normal sterile fashion. After an appropriate timeout was undertaken I proceeded with cystoscopic evaluation utilizing the rigid cystoscope with the 20 Malagasy sheath and 30 lens. Both right and left ureteral orifices were in correct anatomic position. There was clear reflux noted from the right and no reflux noted on the left side. A sensor 0.35 wire was next advanced up the patient's left ureter into the left renal pelvis. A 5 Malagasy open-ended ureteral catheter was then advanced over the wire several centimeters proximal to the ureteral orifice and the wire withdrawn. A left retrograde pyelogram study was then performed to outline the collecting system. The obstructing left ureteropelvic junction was clearly visualized. I then proceeded with reinserting the sensor wire and exchanged the open-ended catheter for a [employer] 6 Malagasy 24 cm double-J stent. The stent was placed under both cystoscopic and fluoroscopic guidance without difficulty. Once the stent was in proper position, the trailing string was removed. The bladder was drained of uric and fluid and cystoscope withdrawn. The patient tolerated the procedures without complications and was transferred to the PACU in satisfactory condition. Marco Trujillo MD Apr 11, 2017 19:33
[2017-04-11] MEDS ORDERED: DO NOT ADM ANY ANTICOAGULANT DRUGS PRN (19:38)
[2017-04-11] MEDS: INSULIN GLARGINE 1,000 UNITS/10 ML VIAL SQ SCH (21:00)
[2017-04-11] MEDS: cefTRIAXone INJ 1,000 MG in SODIUM CHLORIDE 0.9% INJ 100 ML IV SCH (21:08)
[2017-04-12] VITALS (8 sets, daily range): BP systolic 89–107; BP diastolic 54–59; PULSE 60–78; RESP 16–21; TEMP 96.7–98.8; O2SAT 93–97
[2017-04-12] MEDS: LEVOTHYROXINE SODIUM 88 MCG TAB PO SCH (04:27)
[2017-04-12] MEDS: SODIUM CHLOR 0.9% 1000 ML INJ 1,000 ML IV SCH ×2 (05:45→17:21)
[2017-04-12 07:09] LABS: BICARBONATE 27.6 MEQ/L (21.0-32.0); CALCIUM 8.1 MG/DL (8.5-10.1); CREATININE 1.37 MG/DL (0.50-1.00)
[2017-04-12] MEDS: SODIUM CHLORIDE 0.9% FLUSH 10 ML FLUSH IV FLUSH SCH ×2 (08:25→19:59)
[2017-04-12] MEDS: METOPROLOL TARTRATE 25 MG TAB PO SCH ×2 (09:00→20:00)
[2017-04-12] MEDS: hydrALAZINE HCL 25 MG TAB PO SCH ×2 (09:00→19:59)
[2017-04-12] MEDS: PANTOPRAZOLE SOD 20 MG DELAYED RELEASE TAB PO SCH (09:18)
[2017-04-12] MEDS: GABAPENTIN 300 MG CAP PO SCH ×3 (09:18→17:20)
[2017-04-12] MEDS: INSULIN ASPART SUPPLEMENTAL SCALE SQ SCH ×4 (09:19→20:03)
--- NOTE | 2017-04-12 11:38 | HHI.PR ---
Subjective Remarks Pt denies any pain at this time. No nausea or vomiting. No CP/SOB. Tolerating a diet. Objective Vitals Vital Signs Date Time Temp Pulse Resp B/P (MAP) Pulse Ox O2 Delivery O2 Flow Rate FiO2 04/12/17 10:38 Nasal Cannula 3.00 04/12/17 08:00 98.0 61 21 89/55 (66) 95 04/12/17 04:00 96.9 63 18 99/55 (70) 94 04/12/17 03:40 60 04/12/17 00:13 78 04/12/17 00:00 98.1 71 18 95/54 (68) 94 04/11/17 21:00 98.0 73 20 95/51 (66) 93 04/11/17 20:49 92 Nasal Cannula 3.00 04/11/17 20:37 98.0 71 20 102/56 (71) 95 Nasal Cannula 2 04/11/17 20:30 72 14 106/55 (72) 95 Nasal Cannula 2 04/11/17 20:15 67 12 96/53 (67) 95 Nasal Cannula 2 04/11/17 20:00 71 17 98/54 (69) 95 Nasal Cannula 2 04/11/17 19:45 77 13 110/56 (74) 95 Nasal Cannula 2 04/11/17 19:37 98.4 72 12 110/62 (78) 95 Nasal Cannula 2 04/11/17 16:00 98.5 101 20 100/64 (76) 95 I/O 04/11/17 04/11/17 04/11/17 04/12/17 04/12/17 04/12/17 07:00 15:00 23:00 07:00 15:00 23:00 Intake Total 900 ml 1500 ml Output Total 400 ml 500 ml Balance 500 ml 1000 ml Intake Oral 0 ml 600 ml IV Total 900 ml 900 ml Output Urine Total 400 ml 500 ml Estimated Blood Loss 0 ml # Voids 1 # Bowel Movements 0 Result Diagram: 04/11/17 0756 04/12/17 0426 Imaging Last Impressions Lower Extremity Ultrasound 04/11/17 0000 Signed Impressions: Service Date/Time: Tuesday, April 11, 2017 15:48 - CONCLUSION: No DVT is identified within the right lower extremity. Marco Antonio Zaragoza MD Abdomen/Pelvis CT 04/10/17 7669 Signed Impressions: Service Date/Time: March 20:09 - CONCLUSION: 1. No signs of acute trauma. 2. 14 mm left UPJ stone with obstruction. Kane Stanley Jr., MD Thoracic Spine CT 04/10/17 0000 Signed Impressions: Service Date/Time: March 20:13 - CONCLUSION: 1. No fracture or dislocation. 2. Prior cement augmentation of T11 and T12. 3. Diffuse mild degenerative changes. Kane Stanley Jr., MD Shoulder X-Ray 04/10/17 0000 Signed Impressions: Service Date/Time: March 18:51 - CONCLUSION: Suspected chronic rotator cuff injury. No acute abnormality. Kane Stanley Jr., MD Pelvis X-Ray 04/10/17 0000 Signed Impressions: Service Date/Time: March 18:49 - CONCLUSION: No acute abnormality. Kane Stanley Jr., MD Lumbar Spine CT 04/10/17 0000 Signed Impressions: Service Date/Time: March 20:13 - CONCLUSION: 1. No fracture or dislocation. 2. Advanced degenerative changes and scoliotic curvature as detailed above. 3. Old T12 and L1 compression deformities. Kane Stanley Jr., MD Head CT 04/10/17 0000 Signed Impressions: Service Date/Time: March 20:04 - CONCLUSION: No acute disease. Kane Stanley Jr., MD Chest X-Ray 04/10/17 0000 Signed Impressions: Service Date/Time: March 18:46 - CONCLUSION: No acute disease. Kane Stanley Jr., MD Chest CT 04/10/17 0000 Signed Impressions: Service Date/Time: March 20:13 - CONCLUSION: 1. Cardiomegaly. 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 Kane Stanley Jr., MD Cervical Spine CT 04/10/17 0000 Signed Impressions: Service Date/Time: March 20:05 - CONCLUSION: 1. No fracture or dislocation. 2. Degenerative changes as detailed above. Kane Stanley Jr., MD Objective Remarks GENERAL: sitting up on recliner, appears comfortable. EYES: EOMI. ENT: Nose without drainage. Airway patent. NECK: Trachea midline. CARDIOVASCULAR: Regular rate and rhythm without murmurs RESPIRATORY: Diminished at bases. No wheezes GASTROINTESTINAL:soft, NT at this time. no guarding or rebound. MUSCULOSKELETAL: Right ext swelling much improved NEUROLOGICAL: Awake and alert. Motor and sensory grossly within normal limits. normal speech. A/P Problem List: (1) Ureterolithiasis ICD Code: N20.1 - Calculus of ureter Status: Acute (2) Obstructive uropathy ICD Code: N13.9 - Obstructive and reflux uropathy, unspecified Status: Acute Assessment and Plan Pleasant 81-year-old female with a history of diabetes, chronic back pain, GERD , fibromyalgia, hypothyroid, hypertension and overactive bladder was brought to the ED after a fall at home. Ureterolithiasis with obstructive uropathy Abdomen CT reviewed and shows a 1.4 cm left UPJ stone with obstruction -Urology evaluated the patient and she is s/p cystoscopy and left retrograde pyelogram w stent placement. -continue Pain management -continue IVFs Abnormal UA, concerning for UTI -Rocephin IV daily -final Urine culture neg x 24 hrs, continue to f/u Fall at home -PT eval and treat -Patient must use walker Hypertension, chronic -on home medications, monitor vitals Diabetes, chronic -Accu-Cheks with sliding scale insulin -Hold home PO medications while in hospital -Cont Levemir when tolerating PO DVT prophylaxis: SCDs Discharge Planning Pt has been cleared by urology for discharge. Cr at 1.37, will repeat in AM and if improved will d/c u/s right lower ext neg for DVT Bibi Li MD Apr 12, 2017 11:38
[2017-04-12] MEDS ORDERED: fentaNYL 50 MCG/HR PATCH T-DERMAL SCH ×3 (14:00→17:30)
--- NOTE | 2017-04-12 14:40 | EKG ---
Date Performed: 04/11/2017 Time Performed: 15:00:43 PTAGE: 81 years EKG: Sinus rhythm WITH OCCASIONAL SUPRAVENTRICULAR PREMATURE COMPLEXES BORDERLINE LEFT AXIS DEVIATION BORDERLINE ECG S ketan PREVIOUS TRACING , no significant change noted PREVIOUS TRACIN11/03/2016 20.26 DOCTOR: Nolberto Ashford Interpretating Date/Time 04/12/2017 14:40:35
[2017-04-12] MEDS: ATORVASTATIN 10 MG TAB PO SCH (19:59)
[2017-04-12] MEDS: clonazePAM 0.5 MG TAB PO SCH (19:59)
[2017-04-12] MEDS: INSULIN GLARGINE 1,000 UNITS/10 ML VIAL SQ SCH (20:03)
[2017-04-12] MEDS: cefTRIAXone INJ 1,000 MG in SODIUM CHLORIDE 0.9% INJ 100 ML IV SCH (20:05)
[2017-04-13] VITALS (8 sets, daily range): BP systolic 120–149; BP diastolic 68–96; PULSE 66–100; RESP 16–21; TEMP 96.4–98.7; O2SAT 91–95
[2017-04-13] MEDS: SODIUM CHLOR 0.9% 1000 ML INJ 1,000 ML IV SCH ×3 (00:35→20:11)
[2017-04-13] MEDS: LEVOTHYROXINE SODIUM 88 MCG TAB PO SCH (04:31)
[2017-04-13 05:23] LABS: BICARBONATE 28.2 MEQ/L (21.0-32.0); CALCIUM 8.2 MG/DL (8.5-10.1); CREATININE 0.96 MG/DL (0.50-1.00)
[2017-04-13] MEDS: INSULIN ASPART SUPPLEMENTAL SCALE SQ SCH ×4 (07:44→21:00)
[2017-04-13] MEDS: SODIUM CHLORIDE 0.9% FLUSH 10 ML FLUSH IV FLUSH SCH ×2 (07:45→21:00)
[2017-04-13] MEDS: hydrALAZINE HCL 25 MG TAB PO SCH ×2 (09:05→21:00)
[2017-04-13] MEDS: POTASSIUM CHLORIDE 20 MEQ CONTROLLED RELEASE TAB PO SCH (09:05)
[2017-04-13] MEDS: FUROSEMIDE 40 MG TAB PO SCH (09:07)
[2017-04-13] MEDS: GABAPENTIN 300 MG CAP PO SCH ×2 (09:07→21:29)
[2017-04-13] MEDS: PANTOPRAZOLE SOD 20 MG DELAYED RELEASE TAB PO SCH (09:07)
[2017-04-13] MEDS: METOPROLOL TARTRATE 25 MG TAB PO SCH ×2 (09:07→21:00)
[2017-04-13] MEDS ORDERED: POTASSIUM CHLORIDE 20 MEQ CONTROLLED RELEASE TAB PO ONE (09:45)
--- NOTE | 2017-04-13 09:58 | HHI.DS ---
Discharge Summary Admission Date Apr 10, 2017 at 22:14 Discharge Date: Apr 13, 2017 Admitting Diagnosis ureterolithiasis, obstructive uropathy, intractable pain (1) Ureterolithiasis ICD Code: N20.1 - Calculus of ureter Status: Acute (2) Obstructive uropathy ICD Code: N13.9 - Obstructive and reflux uropathy, unspecified Status: Acute Procedures s/p cystoscopy and left retrograde pyelogram w stent placement. Brief History - From Admission Pleasant 81-year-old female with a history of diabetes, chronic back pain, GERD , fibromyalgia, hypothyroid, hypertension and overactive bladder was brought to the ED after a fall at home. She complains of 8 out of 10 left flank pain with radiation to her back that is worse with movement and palpation, with no associated symptoms. She states she was just walking around the house with her walker when she tripped and fell back into a TV stand. She denies any loss of consciousness. She denies any chest pain, shortness of breath, fever or chills. She lives at home with her daughter and grand kids and states they were out of town at the time. She states she normally gets around pretty well with her walker. She does have a fentanyl patch on that takes the edge off her back pain but states it is not helping with her current exacerbation of left flank pain. She denies any pain or burning sensation with urination. I tried to get a hold of Patient's daughter Christi # [phone], message was left. CBC/BMP: 04/11/17 0756 04/13/17 0355 Significant Findings Laboratory Tests Test 04/10/17 18:20 04/10/17 19:08 04/10/17 21:23 04/11/17 07:56 Neutrophils (%) (Auto) 77.4 % (16.0-70.0) 95.9 % (16.0-70.0) Blood Urea Nitrogen 20 MG/DL (7-18) 21 MG/DL (7-18) Creatinine 1.06 MG/DL (0.50-1.00) 1.55 MG/DL (0.50-1.00) Random Glucose 173 MG/DL (74-106) 220 MG/DL (74-106) Total Bilirubin 1.9 MG/DL (0.2-1.0) Potassium Level 3.4 MEQ/L (3.5-5.1) 3.0 MEQ/L (3.5-5.1) Estimat Glomerular Filtration Rate 50 ML/MIN (>89) 32 ML/MIN (>89) Urine Glucose (UA) 70 mg/dL (NEG) Urine Ketones TRACE mg/dL (NEG) Urine Occult Blood TRACE (NEG) Urine Leukocyte Esterase SMALL (NEG) Urine RBC 6 /hpf (0-3) Urine WBC 11 /hpf (0-5) Lymphocytes (%) (Auto) 3.2 % (9.0-44.0) Lymphocytes # (Auto) 0.2 TH/MM3 (1.0-4.8) Test 04/12/17 04:26 04/13/17 03:55 Blood Urea Nitrogen 25 MG/DL (7-18) 22 MG/DL (7-18) Creatinine 1.37 MG/DL (0.50-1.00) Random Glucose 167 MG/DL (74-106) Calcium Level 8.1 MG/DL (8.5-10.1) 8.2 MG/DL (8.5-10.1) Estimat Glomerular Filtration Rate 37 ML/MIN (>89) 56 ML/MIN (>89) Potassium Level 3.2 MEQ/L (3.5-5.1) Imaging Last Impressions Lower Extremity Ultrasound 04/11/17 0000 Signed Impressions: Service Date/Time: Tuesday, April 11, 2017 15:48 - CONCLUSION: No DVT is identified within the right lower extremity. Marco Antonio Zaragoza MD Abdomen/Pelvis CT 04/10/17 0088 Signed Impressions: Service Date/Time: March 20:09 - CONCLUSION: 1. No signs of acute trauma. 2. 14 mm left UPJ stone with obstruction. Kane Stanley Jr., MD Thoracic Spine CT 04/10/17 0000 Signed Impressions: Service Date/Time: March 20:13 - CONCLUSION: 1. No fracture or dislocation. 2. Prior cement augmentation of T11 and T12. 3. Diffuse mild degenerative changes. Kane Stanley Jr., MD Shoulder X-Ray 04/10/17 0000 Signed Impressions: Service Date/Time: March 18:51 - CONCLUSION: Suspected chronic rotator cuff injury. No acute abnormality. Kane Stanley Jr., MD Pelvis X-Ray 04/10/17 0000 Signed Impressions: Service Date/Time: March 18:49 - CONCLUSION: No acute abnormality. Kane Stanley Jr., MD Lumbar Spine CT 04/10/17 0000 Signed Impressions: Service Date/Time: March 20:13 - CONCLUSION: 1. No fracture or dislocation. 2. Advanced degenerative changes and scoliotic curvature as detailed above. 3. Old T12 and L1 compression deformities. Kane Stanley Jr., MD Head CT 04/10/17 0000 Signed Impressions: Service Date/Time: March 20:04 - CONCLUSION: No acute disease. Kane Stanley Jr., MD Chest X-Ray 04/10/17 0000 Signed Impressions: Service Date/Time: March 18:46 - CONCLUSION: No acute disease. Kane Stanley Jr., MD Chest CT 04/10/17 0000 Signed Impressions: Service Date/Time: March 20:13 - CONCLUSION: 1. Cardiomegaly. 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 Kane Stanley Jr., MD Cervical Spine CT 04/10/17 0000 Signed Impressions: Service Date/Time: March 20:05 - CONCLUSION: 1. No fracture or dislocation. 2. Degenerative changes as detailed above. Kane Stanley Jr., MD PE at Discharge GENERAL: sitting up on recliner, appears comfortable. EYES: EOMI. ENT: Nose without drainage. Airway patent. NECK: Trachea midline. CARDIOVASCULAR: Regular rate and rhythm without murmurs RESPIRATORY: Diminished at bases. No wheezes GASTROINTESTINAL:soft, NT at this time. no guarding or rebound. MUSCULOSKELETAL: Right ext swelling much improved NEUROLOGICAL: Awake and alert. Motor and sensory grossly within normal limits. normal speech. Pt update on day of discharge Pt feels well. Denies any CP/SOB/N/V. No pain Hospital Course Pleasant 81-year-old female with a history of diabetes, chronic back pain, GERD , fibromyalgia, hypothyroid, hypertension and overactive bladder was brought to the ED after a fall at home. Ureterolithiasis with obstructive uropathy Abdomen CT reviewed and shows a 1.4 cm left UPJ stone with obstruction -Urology evaluated the patient and she is s/p cystoscopy and left retrograde pyelogram w stent placement. Cr. today back to normal. Abnormal UA, concerning for UTI -Rocephin IV daily -final Urine culture neg x 24 hrs, continue to f/u Fall at home -PT evaluated the patient and recommended rehab -Patient must use walker Pt Condition on Discharge: Stable Discharge Disposition: Discharge to SNF Discharge Time: > 30 minutes Discharge Instructions DIET: Follow Instructions for: Diabetic Diet Follow up Referrals: PCP Follow-up - 1 Week Urology - 2 Weeks Continued Medications: Aspirin (Aspirin Low Dose) 81 Mg Chew 81 MG CHEW DAILY, TAB 0 Refills Atorvastatin (Atorvastatin) 10 Mg Tab 10 MG PO HS for Cholesterol Management, #30 TAB 0 Refills Clonazepam (Clonazepam) 0.5 Mg Tab 0.25 MG PO HS, #60 TAB 0 Refills Fentanyl Patch 72 HR (Fentanyl Patch 72 HR) 50 Mcg/Hr Patch 50 MCG T-DERMAL Q72H for Pain Management, #10 PATCH 0 Refills Remove old patch when new one placed. Furosemide (Lasix) 40 Mg Tab 40 MG PO EVERY OTHER DAY, #30 TAB 0 Refills Gabapentin (Neurontin) 300 Mg Cap 300 MG PO TID, #90 CAP 0 Refills Hydralazine HCl (Hydralazine HCl) 25 Mg Tablet 25 MG PO BID for Blood Pressure Management, #60 TAB 0 Refills Insulin Glargine Inj (Lantus Inj) 1,000 Unit/10 Ml Vial 10 UNITS SQ HS for Blood Sugar Management, VIAL 0 Refills Levothyroxine (Levoxyl) 88 Mcg Tab 88 MCG PO DAILY for Thyroid, #30 TAB 0 Refills Metoprolol Tartrate (Metoprolol Tartrate) 25 Mg Tab 12.5 MG PO BID, #60 TAB 0 Refills Nateglinide (Nateglinide) 120 Mg Tab 120 MG PO TIDAC for Blood Sugar Management, #90 TAB 0 Refills Omeprazole Magnesium (Prilosec) 20 Mg Tab 20 MG PO DAILY Pioglitazone (Actos) 30 Mg Tab 30 MG PO DAILY for Blood Sugar Management, #30 TAB 0 Refills Potassium Chloride ER (Potassium Chloride ER) 20 Meq Tab 20 MEQ PO EVERY OTHER DAY for Electrolyte Replacement, #30 TAB 0 Refills Bibi Li MD Apr 13, 2017 09:58
--- NOTE | 2017-04-13 11:01 | RADRPT ---
EXAM DATE/TIME: 04/13/2017 10:39 [facility] COMPARISON: CHEST SINGLE AP, April 10, 2017, 18:46. INDICATIONS : Short of breath. MEDICAL HISTORY : Carcinoma, breast. Hypothyroidism. Hypercholesterolemia. Hypertension. Coronary artery disease. Arthritis. Diabetes. SURGICAL HISTORY : Cholecystectomy. Mastectomy, left. Appendectomy. ENCOUNTER: Subsequent ACUITY: 1 day PAIN SCORE: 0/10 LOCATION: Bilateral chest FINDINGS: The lungs are clear without infiltrate, nodule, or mass. There is no appreciable pleural effusion fo r technique. Heart and mediastinum are unremarkable. Left lung base medial opacities present probabl y due to tortuous aorta. Right subclavian line is present with tip overlapping the expected region of the SVC. CONCLUSION: No acute cardiopulmonary disease. eLigh Mckeon MD on April 13, 2017 at 10:58 Board Certified Radiologist. This report was verified electronically.
[2017-04-13] MEDS: INSULIN GLARGINE 1,000 UNITS/10 ML VIAL SQ SCH (21:00)
[2017-04-13] MEDS: ATORVASTATIN 10 MG TAB PO SCH (21:29)
[2017-04-13] MEDS: clonazePAM 0.5 MG TAB PO SCH (21:30)
[2017-04-13] MEDS: cefTRIAXone INJ 1,000 MG in SODIUM CHLORIDE 0.9% INJ 100 ML IV SCH (21:36)
[2017-04-14] VITALS: BP 125/82; PULSE 77; RESP 15; TEMP 98; O2SAT 97
[2017-04-14 04:00] VITALS: BP 130/85; PULSE 78; RESP 19; TEMP 98.7; O2SAT 95
[2017-04-14] MEDS: SODIUM CHLOR 0.9% 1000 ML INJ 1,000 ML IV SCH ×2 (04:48→15:38)
[2017-04-14] MEDS: LEVOTHYROXINE SODIUM 88 MCG TAB PO SCH (04:49)
[2017-04-14] MEDS: INSULIN ASPART SUPPLEMENTAL SCALE SQ SCH ×2 (07:38→12:28)
[2017-04-14 08:00] VITALS: BP 170/85; PULSE 86; RESP 21; TEMP 95.5; O2SAT 92
[2017-04-14] MEDS: hydrALAZINE HCL 25 MG TAB PO SCH (08:29)
[2017-04-14] MEDS: SODIUM CHLORIDE 0.9% FLUSH 10 ML FLUSH IV FLUSH SCH (08:29)
[2017-04-14] MEDS: METOPROLOL TARTRATE 25 MG TAB PO SCH (08:29)
[2017-04-14] MEDS: PANTOPRAZOLE SOD 20 MG DELAYED RELEASE TAB PO SCH (08:29)
[2017-04-14] MEDS: GABAPENTIN 300 MG CAP PO SCH (08:29)
[2017-04-14 12:00] VITALS: BP 141/82; PULSE 65; RESP 18; TEMP 96; O2SAT 96
[2017-04-14 13:36] LABS: HEMATOCRIT 36.9 % (35.0-46.0); HEMOGLOBIN 12.5 GM/DL (11.6-15.3); MEAN CELL VOLUME 94.2 FL (80.0-100.0); MEAN CORPUSCULAR HEMOGLOBIN 31.9 PG (27.0-34.0); MEAN CORPUSCULAR HGB CONC 33.8 % (32.0-36.0); MEAN PLATELET VOLUME 9.9 FL (7.0-11.0); PLATELET COUNT 165 TH/MM3 (150-450); RED BLOOD COUNT 3.92 MIL/MM3 (4.00-5.30); WHITE BLOOD COUNT 8.5 TH/MM3 (4.0-11.0)
[2017-04-14 14:02] LABS: CALCIUM 8.9 MG/DL (8.5-10.1); CREATININE 0.76 MG/DL (0.50-1.00)
--- NOTE | 2017-04-14 14:14 | HHI.PR ---
Subjective Remarks Patient medically clear for discharge yesterday. Potassium level is low this morning and replacements provided. Should patient staying on the day a repeat potassium levels ordered for the a.m. Objective Vital Signs Date Time Temp Pulse Resp B/P (MAP) Pulse Ox O2 Delivery O2 Flow Rate FiO2 04/14/17 08:00 95.5 86 21 170/85 (113) 92 04/14/17 04:00 98.7 78 19 130/85 (100) 95 04/14/17 00:00 98.0 77 15 125/82 (96) 97 04/13/17 21:25 Nasal Cannula 2.00 04/13/17 20:00 98.1 76 19 120/79 (93) 95 04/13/17 20:00 77 04/13/17 16:00 96.4 96 21 140/76 (97) 94 I/O 04/13/17 04/13/17 04/13/17 04/14/17 04/14/17 04/14/17 07:00 15:00 23:00 07:00 15:00 23:00 Intake Total 1140 ml 1000 ml 1600 ml 1040 ml Output Total 500 ml 750 ml Balance 640 ml 1000 ml 850 ml 1040 ml Intake Oral 240 ml 500 ml 240 ml IV Total 900 ml 1000 ml 1100 ml 800 ml Output Urine Total 500 ml 750 ml # Voids 1 5 4 # Bowel Movements 0 1 0 Result Diagram: 04/14/17 1253 04/14/17 1253 Objective Remarks GENERAL: NAD, A&Ox3 HEAD: Normocephalic. NECK: Supple, trachea midline. No lymphadenopathy. EYES: No scleral icterus. No injection or drainage. CARDIOVASCULAR: Regular rate and rhythm without murmurs, gallops, or rubs. RESPIRATORY: Breath sounds equal bilaterally. No accessory muscle use. GASTROINTESTINAL: Abdomen soft, non-tender, nondistended. MUSCULOSKELETAL: No cyanosis, or edema. SKIN: Warm and dry. NEURO: No focal neurological deficitis. A/P Problem List: (1) Obstructive uropathy ICD Code: N13.9 - Obstructive and reflux uropathy, unspecified Status: Acute (2) Renal calculus, left ICD Code: N20.0 - Calculus of kidney (3) Intractable pain ICD Code: R52 - Pain, unspecified Status: Acute (4) Ureterolithiasis ICD Code: N20.1 - Calculus of ureter Status: Acute Assessment and Plan 81-year-old female admitted secondary to ureterolithiasis with urinary obstruction Ureterolithiasis with obstructive uropathy Stent placement here Follow up with urology as an outpatient Abnormal UA, concerning for UTI No UTI on workup No need to continue antibiotics at discharge Fall at home Weakness Continue PT Hypertension Continue baseline treatment Follow blood pressures Adjust treatments as neededr vitals Diabetes mellitus type 2 Follow blood sugars Insulin sliding scale Diabetic diet DVT prophylaxis SCDs Discharge Planning Patient discharged on 04/13/17 Pavan Wu MD Apr 14, 2017 14:14
[2017-04-14] MEDS ORDERED: POTASSIUM CHLORIDE 20 MEQ PWD PACKET PO ONE (14:15)
[2017-04-14] MEDS ORDERED: FENT50DI T-DERMAL (15:22)
[2017-04-14 16:00] VITALS: BP 136/67; PULSE 63; RESP 18; TEMP 95.9; O2SAT 97
[2017-04-15] MEDS ORDERED: REMOVE OLD PATCH T-DERMAL SCH (14:00)
== END 2017-04-14 16:43 | DRG 694 ==
LOC: NEPD 17:33 → NEDA 22:14 → OBSVTOIN 22:14 → NEDH 04-11 02:14 → N07A 04-11 12:19
PROVIDERS: ADMIT Hospitalist; ATTEND Hospitalist
PROC: BT1F1ZZ Fluoroscopy of Left Kidney, Ureter and Bladder using Low Osmolar Contrast (ICD-10-PCS; 2017-04-11)
PROC: 0T778DZ Dilation of Left Ureter with Intraluminal Device, Via Natural or Artificial Opening Endoscopic (ICD-10-PCS; principal; 2017-04-11 18:40)
DX: N13.2 Hydronephrosis with renal and ureteral calculous obstruction (principal); E11.51 Type 2 diabetes mellitus with diabetic peripheral angiopathy without gangrene; I11.9 Hypertensive heart disease without heart failure; I87.1 Compression of vein; F41.9 Anxiety disorder, unspecified; I25.10 Atherosclerotic heart disease of native coronary artery without angina pectoris; E03.9 Hypothyroidism, unspecified; K21.9 Gastro-esophageal reflux disease without esophagitis; M79.7 Fibromyalgia; N32.81 Overactive bladder; M54.9 Dorsalgia, unspecified; G89.29 Other chronic pain; M25.552 Pain in left hip; M25.511 Pain in right shoulder; H91.90 Unspecified hearing loss, unspecified ear; M19.90 Unspecified osteoarthritis, unspecified site; F32.9 Major depressive disorder, single episode, unspecified; W01.0XXA Fall on same level from slipping, tripping and stumbling without subsequent striking against object, initial encounter; Y92.009 Unspecified place in unspecified non-institutional (private) residence as the place of occurrence of the external cause; Z79.4 Long term (current) use of insulin; Z85.3 Personal history of malignant neoplasm of breast; Z88.6 Allergy status to analgesic agent; Z90.12 Acquired absence of left breast and nipple; Z91.013 Allergy to seafood
CPT/HCPCS: 70450; 71045; 71260; 72125; 72129; 72132; 72170; 73030; 74177; 74420; 80048; 80053; 81001; 82948; 85025; 85027; 85610; 85730; 87086; 93005; 93971; 94618; 96374; 96375; 96376; C1769; J0690; J0696; J1100; J1170; J1815; J2270; J2370; J2405; J7030; Q9967

== ENCOUNTER 2017-06-01 06:19 | Inpatient (IN) | payer MEDICARE, OTHER ==
[~2017-06-01] VITALS: Ht 160 cm; Wt 72.4 kg
[2017-06-01] VITALS (7 sets, daily range): BP systolic 120–173; BP diastolic 57–89; PULSE 69–82; RESP 16–18; TEMP 98.2–99.2; O2SAT 91–100
[~2017-06-01 06:19] MED LIST changes: +FURO1TAB60 PO; -FURO40TA PO; -GABA300C5 PO; -HUMALOG SQ; -MILKSUS PO; +NEUR300C PO; +PRIL20TA2 PO; -TYLE325T PO; -ZOFR4TAB PO
--- NOTE | 2017-06-01 06:34 | PD ---
HPI Chief Complaint: Flank/Kidney Pain Time Seen by Provider: 06:33 Travel History International Travel<30 days: No Contact w/Intl Traveler<30days: No Traveled to known affect area: No History of Present Illness HPI 82yo F [place] with PMH of DM, CBP, GERD, fibromyalgia, hypothyroidism , HTN here with c/o left sided abdominal pain today. Said she has had kidney stones but today pain was worst. Denies any fever, chest pain, sob, n/v, dysuria. Pt has urinary incontinence and that is not new. As per our record, pt had CT a/p 04/10/17 that showed 14mm left UPJ stone with obstruction. Pt was seen by urology and had cystoscopy and left retrograde pyelogram with stent placement. PFSH Past Medical History Arthritis: Yes Blood Disorders: No Anxiety: Yes Depression: Yes Cancer: No Cardiovascular Problems: Yes High Cholesterol: Yes Chemotherapy: Yes (HX ) Chest Pain: Yes Coronary Artery Disease: Yes Diabetes: Yes Patient Takes Glucophage: No Diminished Hearing: Yes (MCGRATH) Endocrine: Yes Gastrointestinal Disorders: No Genitourinary: Yes (URINARY FREQUENCY) Hypertension: Yes Immune Disorder: No Implanted Vascular Access Dvce: No Musculoskeletal: Yes Neurologic: No Reproductive: No Respiratory: Yes Immunizations Current: Yes Thyroid Disease: Yes (HYPO) Tetanus Vaccination: < 5 Years Influenza Vaccination: No Menopausal: Yes : 3 Para: 3 Past Surgical History Appendectomy: Yes Cholecystectomy: Yes Mastectomy: Yes (LEFT) Tonsillectomy: Yes Other Surgery: Yes (see hx) Social History Alcohol Use: No Tobacco Use: No Substance Use: No Allergies-Medications (Allergen,Severity, Reaction): Coded Allergies: aspirin (Unverified Allergy, Intermediate, Burning, 06/01/17) Fish Containing Products (Unverified Allergy, Unknown, 06/01/17) adhesive (Unverified Allergy, Unknown, 06/01/17) amlodipine (Unverified Allergy, Unknown, 06/01/17) bupropion (Unverified Allergy, Unknown, 06/01/17) duloxetine (Unverified Allergy, Unknown, 06/01/17) escitalopram (Unverified Allergy, Unknown, 06/01/17) pseudoephedrine (Unverified Allergy, Unknown, 06/01/17) rosiglitazone (Unverified Allergy, Unknown, 06/01/17) scopolamine (Unverified Allergy, Unknown, 06/01/17) valsartan (Unverified Allergy, Unknown, 06/01/17) Reported Meds & Prescriptions Reported Meds & Active Scripts Active Fentanyl Patch 72 HR (Fentanyl) 50 Mcg/Hr Patch 50 Mcg T-DERMAL Q72H Remove old patch when new one placed. Reported Potassium Chloride ER (Potassium Chloride) 20 Meq Tab 20 Meq PO EVERY OTHER DAY Lasix (Furosemide) 40 Mg Tab 40 Mg PO EVERY OTHER DAY Prilosec (Omeprazole Magnesium) 20 Mg Tab 20 Mg PO DAILY Neurontin (Gabapentin) 300 Mg Cap 300 Mg PO TID Metoprolol Tartrate 25 Mg Tab 12.5 Mg PO BID Atorvastatin (Atorvastatin Calcium) 10 Mg Tab 10 Mg PO HS Lantus Inj (Insulin Glargine) 1,000 Unit/10 Ml Vial 10 Units SQ HS Aspirin Low Dose (Aspirin) 81 Mg Chew 81 Mg CHEW DAILY Hydralazine HCl 25 Mg Tablet 25 Mg PO BID Nateglinide 120 Mg Tab 120 Mg PO TIDAC Clonazepam 0.5 Mg Tab 0.25 Mg PO HS Actos (Pioglitazone HCl) 30 Mg Tab 30 Mg PO DAILY Levoxyl (Levothyroxine Sodium) 88 Mcg Tab 88 Mcg PO DAILY Review of Systems Except as stated in HPI: all other systems reviewed are Neg Physical Exam Narrative GENERAL: 82yo F in mild distress. SKIN: Focused skin assessment warm/dry. HEAD: Atraumatic. Normocephalic. EYES: Pupils equal and round. No scleral icterus. No injection or drainage. ENT: No nasal bleeding or discharge. Mucous membranes pink and moist. NECK: Trachea midline. No JVD. CARDIOVASCULAR: Regular rate and rhythm. No murmur appreciated. RESPIRATORY: No accessory muscle use. Clear to auscultation. Breath sounds equal bilaterally. GASTROINTESTINAL: Abdomen soft, +TTP LUQ, LLQ. No rebound tenderness or guarding. MUSCULOSKELETAL: No obvious deformities. No clubbing. No cyanosis. +Bilateral lower ext edema. NEUROLOGICAL: Awake and alert. No obvious cranial nerve deficits. Motor grossly within normal limits in all extremities. Normal speech. Data Data Last Documented VS Vital Signs Date Time Temp Pulse Resp B/P (MAP) Pulse Ox O2 Delivery O2 Flow Rate FiO2 06/01/17 09:16 14 06/01/17 09:00 71 145/68 (93) 100 Room Air 06/01/17 06:24 98.8 Orders Orders Complete Blood Count With Diff (06/01/17 06:31) Prothrombin Time / Inr (Pt) (06/01/17 06:31) Act Partial Throm Time (Ptt) (06/01/17 06:31) Ct Abd/Pel W/O Iv Contrast (06/01/17 06:31) Urinalysis - C+S If Indicated (06/01/17 06:31) Comprehensive Metabolic Panel (06/01/17 06:31) Morphine Inj (Morphine Inj) (06/01/17 06:45) Lipase (06/01/17 06:34) Hydromorphone Pf Inj (Dilaudid Pf Inj) (06/01/17 07:15) Tamsulosin (Flomax) (06/01/17 07:15) Sodium Chlor 0.9% 1000 Ml Inj (Ns 1000 M (06/01/17 08:15) Cath For Specimen (06/01/17 08:02) Urine Culture (06/01/17 08:20) Ceftriaxone Inj (Rocephin Inj) (06/01/17 09:15) Consult Urology (06/01/17 ) Admit Order (Ed Use Only) (06/01/17 ) Vital Signs (Adult) Q4H (06/01/17 09:24) Activity Oob With Assistance (06/01/17 09:24) Notify Dr: Other (06/01/17 09:24) Labs Laboratory Tests Test 06/01/17 06:50 06/01/17 08:20 White Blood Count 9.6 TH/MM3 Red Blood Count 4.14 MIL/MM3 Hemoglobin 13.2 GM/DL Hematocrit 38.5 % Mean Corpuscular Volume 93.0 FL Mean Corpuscular Hemoglobin 32.0 PG Mean Corpuscular Hemoglobin Concent 34.4 % Red Cell Distribution Width 14.9 % Platelet Count 206 TH/MM3 Mean Platelet Volume 8.7 FL Neutrophils (%) (Auto) 78.7 % Lymphocytes (%) (Auto) 10.3 % Monocytes (%) (Auto) 9.9 % Eosinophils (%) (Auto) 0.9 % Basophils (%) (Auto) 0.2 % Neutrophils # (Auto) 7.6 TH/MM3 Lymphocytes # (Auto) 1.0 TH/MM3 Monocytes # (Auto) 1.0 TH/MM3 Eosinophils # (Auto) 0.1 TH/MM3 Basophils # (Auto) 0.0 TH/MM3 CBC Comment DIFF FINAL Differential Comment Prothrombin Time 10.8 SEC Prothromb Time International Ratio 1.1 RATIO Activated Partial Thromboplast Time 27.2 SEC Blood Urea Nitrogen 15 MG/DL Creatinine 1.01 MG/DL Random Glucose 177 MG/DL Total Protein 7.0 GM/DL Albumin 3.5 GM/DL Calcium Level 9.2 MG/DL Alkaline Phosphatase 100 U/L Aspartate Amino Transf (AST/SGOT) 18 U/L Alanine Aminotransferase (ALT/SGPT) 21 U/L Total Bilirubin 2.0 MG/DL Sodium Level 137 MEQ/L Potassium Level 3.2 MEQ/L Chloride Level 100 MEQ/L Carbon Dioxide Level 30.3 MEQ/L Anion Gap 7 MEQ/L Estimat Glomerular Filtration Rate 52 ML/MIN Lipase 135 U/L Urine Color LIGHT-YELLOW Urine Turbidity CLEAR Urine pH 8.0 Urine Specific [place] 1.007 Urine Protein NEG mg/dL Urine Glucose (UA) TRACE mg/dL Urine Ketones NEG mg/dL Urine Occult Blood TRACE Urine Nitrite NEG Urine Bilirubin NEG Urine Urobilinogen LESS THAN 2.0 MG/DL Urine Leukocyte Esterase LARGE Urine RBC 4 /hpf Urine WBC 44 /hpf Urine Bacteria RARE /hpf Urine Hyaline Casts 1 /lpf Urine Mucus FEW /lpf Microscopic Urinalysis Comment CATH-CULTURE IND MDM Medical Decision Making Medical Screen Exam Complete: Yes Emergency Medical Condition: Yes Differential Diagnosis Nephrolithiasis vs. cystitis vs. diverticulitis Narrative Course 82yo F with left sided abdominal pain and history of recent left UPJ stone. Pt is crying and said she is in more pain than usual. Pt given morphine 2mg IV for pain. She has not had any CT scan since March so will check labs, urinalysis, CT a/p. Pt seen at end of my shift so sign out to next team to follow up and disposition. Diagnosis Primary Impression: Abdominal pain Qualified Codes: R10.9 - Unspecified abdominal pain Rach Miranda DO Jun 01, 2017 06:34
[2017-06-01] MEDS ORDERED: MORPHINE SULFATE 2 MG/ML INJ IV PUSH ONE (06:45)
--- NOTE | 2017-06-01 06:59 | RADRPT ---
EXAM DATE/TIME: 06/01/2017 06:41 [facility] COMPARISON: CT ABDOMEN & PELVIS W CONTRAST, April 10, 2017, 20:09. INDICATIONS : Left flank and abdomen pain. ORAL CONTRAST: No oral contrast ingested. RADIATION DOSE: 12.76 CTDIvol (mGy) MEDICAL HISTORY : Cardiovascular disease. Hypertension. Carcinoma, breast. SURGICAL HISTORY : Cholecystectomy. Appendectomy.Kyphoplasty.Mastectomy Renal stent ENCOUNTER: Initial ACUITY: 1 day PAIN SCALE: 10/10 LOCATION: Left flank TECHNIQUE: Volumetric scanning of the abdomen and pelvis was performed. Using automated exposure control and ad justment of the mA and/or kV according to patient size, radiation dose was kept as low as reasonably achievable to obtain optimal diagnostic quality images. DICOM format image data is available electro nically for review and comparison. FINDINGS: LOWER LUNGS: The visualized lower lungs are clear. LIVER: Homogeneous density without lesion. There is no dilation of the biliary tree. No calcified gallston es. SPLEEN: Normal size without lesion. PANCREAS: Within normal limits. KIDNEYS: A left ureteral stent has been placed since the prior CT. Adjacent to the stent in the upper left ure ter is a 5 x 11 x 10 mm stone. It is in a similar to slightly more distal location as on the prior CT . Moderate hydronephrosis is seen of the left kidney and there is perinephric edema. The upper pigtai l is in the lower left renal pelvis. The lower pigtail is in the urinary bladder. No stones or obstru ctive uropathy of the right kidney. ADRENAL GLANDS: Within normal limits. VASCULAR: There is no aortic aneurysm. BOWEL/MESENTERY: The stomach, small bowel, and colon demonstrate no acute abnormality. There is no free intraperitone al air or fluid. ABDOMINAL WALL: Within normal limits. RETROPERITONEUM: There is no lymphadenopathy. BLADDER: No wall thickening or mass. REPRODUCTIVE: Within normal limits. INGUINAL: There is no lymphadenopathy or hernia. MUSCULOSKELETAL: No acute bony abnormality demonstrated. CONCLUSION: 1. Left ureteral stent appears slightly more distal in position than expected but should still be fun ctional as visualized. Given the moderate hydronephrosis and perinephric edema, stent occlusion is hilario spected. 2. There is a persistent large stone in the left upper ureter. Marco Antonio Ventura MD on June 01, 2017 at 6:53 Board Certified Radiologist. This report was verified electronically.
[2017-06-01 07:01] LABS: AUTOMATED NEUTROPHIL # 7.6 TH/MM3 (1.8-7.7); BASOPHIL % 0.2 % (0.0-2.0); EOSINOPHIL # 0.1 TH/MM3 (0-0.4); EOSINOPHIL % 0.9 % (0.0-4.0); HEMATOCRIT 38.5 % (35.0-46.0); HEMOGLOBIN 13.2 GM/DL (11.6-15.3); LYMPH % 10.3 % (9.0-44.0); MEAN CORPUSCULAR HGB CONC 34.4 % (32.0-36.0); MEAN PLATELET VOLUME 8.7 FL (7.0-11.0); MONO % 9.9 % (0.0-8.0); NEUT % 78.7 % (16.0-70.0); PLATELET COUNT 206 TH/MM3 (150-450); RED BLOOD COUNT 4.14 MIL/MM3 (4.00-5.30); RED CELL DISTRIBUTION WIDTH 14.9 % (11.6-17.2); WHITE BLOOD COUNT 9.6 TH/MM3 (4.0-11.0)
[2017-06-01 07:13] LABS: ALBUMIN 3.5 GM/DL (3.4-5.0); ALT (GPT) 21 U/L (10-53); AST (GOT) 18 U/L (15-37); BICARBONATE 30.3 MEQ/L (21.0-32.0); BLOOD UREA NITROGEN 15 MG/DL (7-18); CALCIUM 9.2 MG/DL (8.5-10.1); CHLORIDE 100 MEQ/L (98-107); CREATININE 1.01 MG/DL (0.50-1.00); GLOMERULAR FILTRATION RATE 52 ML/MIN (>89); GLUCOSE,RANDOM 177 MG/DL (74-106); SODIUM (NA) 137 MEQ/L (136-145)
[2017-06-01 07:15] LABS: ALKALINE PHOSPHATASE 100 U/L (45-117)
[2017-06-01] MEDS ORDERED: HYDROmorphone HCL PF 2 MG/ML VIAL IV PUSH ONE (07:15)
[2017-06-01] MEDS ORDERED: TAMSULOSIN HCL 0.4 MG CAP PO ONE (07:15)
[2017-06-01 07:16] LABS: INTERNATIONAL NORMALIZED RATIO 1.1 RATIO; PROTHROMBIN TIME - PATIENT 10.8 SEC (9.8-11.6)
--- NOTE | 2017-06-01 07:52 | PD ---
Physical Exam Date Seen by Provider: Jun 01, 2017 Narrative This patient presents with left lower quadrant abdominal pain. Onset was yesterday. Pain has been continuous. She describes it as sharp and rates it at 10/10. Patient reports a previous history of kidney stones. This patient has multiple medical problems including chronic pain. She uses a fentanyl patch 50 mcg chronically. This may affect our ability to control her pain. Data Data Last Documented VS Vital Signs Date Time Temp Pulse Resp B/P (MAP) Pulse Ox O2 Delivery O2 Flow Rate FiO2 06/01/17 09:16 14 06/01/17 09:00 71 145/68 (93) 100 Room Air 06/01/17 06:24 98.8 Orders Orders Complete Blood Count With Diff (06/01/17 06:31) Prothrombin Time / Inr (Pt) (06/01/17 06:31) Act Partial Throm Time (Ptt) (06/01/17 06:31) Ct Abd/Pel W/O Iv Contrast (06/01/17 06:31) Urinalysis - C+S If Indicated (06/01/17 06:31) Comprehensive Metabolic Panel (06/01/17 06:31) Morphine Inj (Morphine Inj) (06/01/17 06:45) Lipase (06/01/17 06:34) Hydromorphone Pf Inj (Dilaudid Pf Inj) (06/01/17 07:15) Tamsulosin (Flomax) (06/01/17 07:15) Sodium Chlor 0.9% 1000 Ml Inj (Ns 1000 M (06/01/17 08:15) Cath For Specimen (06/01/17 08:02) Urine Culture (06/01/17 08:20) Ceftriaxone Inj (Rocephin Inj) (06/01/17 09:15) Consult Urology (06/01/17 ) Admit Order (Ed Use Only) (06/01/17 ) Vital Signs (Adult) Q4H (06/01/17 09:24) Diet Heart Healthy (06/01/17 Breakfast) Activity Oob With Assistance (06/01/17 09:24) Notify Dr: Other (06/01/17 09:24) Labs Laboratory Tests Test 06/01/17 06:50 06/01/17 08:20 White Blood Count 9.6 TH/MM3 Red Blood Count 4.14 MIL/MM3 Hemoglobin 13.2 GM/DL Hematocrit 38.5 % Mean Corpuscular Volume 93.0 FL Mean Corpuscular Hemoglobin 32.0 PG Mean Corpuscular Hemoglobin Concent 34.4 % Red Cell Distribution Width 14.9 % Platelet Count 206 TH/MM3 Mean Platelet Volume 8.7 FL Neutrophils (%) (Auto) 78.7 % Lymphocytes (%) (Auto) 10.3 % Monocytes (%) (Auto) 9.9 % Eosinophils (%) (Auto) 0.9 % Basophils (%) (Auto) 0.2 % Neutrophils # (Auto) 7.6 TH/MM3 Lymphocytes # (Auto) 1.0 TH/MM3 Monocytes # (Auto) 1.0 TH/MM3 Eosinophils # (Auto) 0.1 TH/MM3 Basophils # (Auto) 0.0 TH/MM3 CBC Comment DIFF FINAL Differential Comment Prothrombin Time 10.8 SEC Prothromb Time International Ratio 1.1 RATIO Activated Partial Thromboplast Time 27.2 SEC Blood Urea Nitrogen 15 MG/DL Creatinine 1.01 MG/DL Random Glucose 177 MG/DL Total Protein 7.0 GM/DL Albumin 3.5 GM/DL Calcium Level 9.2 MG/DL Alkaline Phosphatase 100 U/L Aspartate Amino Transf (AST/SGOT) 18 U/L Alanine Aminotransferase (ALT/SGPT) 21 U/L Total Bilirubin 2.0 MG/DL Sodium Level 137 MEQ/L Potassium Level 3.2 MEQ/L Chloride Level 100 MEQ/L Carbon Dioxide Level 30.3 MEQ/L Anion Gap 7 MEQ/L Estimat Glomerular Filtration Rate 52 ML/MIN Lipase 135 U/L Urine Color LIGHT-YELLOW Urine Turbidity CLEAR Urine pH 8.[address] [place] 1.007 Urine Protein NEG mg/dL Urine Glucose (UA) TRACE mg/dL Urine Ketones NEG mg/dL Urine Occult Blood TRACE Urine Nitrite NEG Urine Bilirubin NEG Urine Urobilinogen LESS THAN 2.0 MG/DL Urine Leukocyte Esterase LARGE Urine RBC 4 /hpf Urine WBC 44 /hpf Urine Bacteria RARE /hpf Urine Hyaline Casts 1 /lpf Urine Mucus FEW /lpf Microscopic Urinalysis Comment CATH-CULTURE IND MDM Supervised Visit with DALE: No Differential Diagnosis Differential diagnosis of flank pain includes but is not limited to kidney stone , pyelonephritis, musculoskeletal pain, PE Narrative Course This patient presents with left-sided abdominal pain which she believes is secondary to a kidney stone. CT shows a ureteral stent in the left ureter. There is a 5 X 11 X 10 stone at the proximal portion of the stent. There is associated hydronephrosis and perinephric stranding. CBC & BMP Diagram 06/01/17 06:50 Total Protein 7.0, Albumin 3.5, Calcium Level 9.2, Alkaline Phosphatase 100, Aspartate Amino Transf (AST/SGOT) 18, Alanine Aminotransferase (ALT/SGPT) 21, Total Bilirubin 2.0 H I have ordered Dilaudid and Flomax. The patient was initially treated with morphine 2 mg IV. She lists an allergy to aspirin although she takes aspirin regularly. She is also elderly and does not have the best of kidney function. Therefore, Toradol has been withheld. 8 AM The patient reports that she is much better. She has not yet been able to provide us a urine sample. I will give her a liter of fluid. If she has not spontaneously urinated at the end of that liter, she will be catheterized. UA>>large LE, 44 WBCs, rare bact. I have ordered Rocephin 1 g IV. This patient will need to be admitted for pyelonephritis associated with a large , proximal kidney stone associated with a ureteral stent. I have placed a consult to her urologist, Dr. Trujillo. Physician Communication Physician Communication Dr. Reynoso Diagnosis Primary Impression: Abdominal pain Qualified Codes: R10.32 - Left lower quadrant pain Additional Impressions: Kidney stone Pyelonephritis Admitting Information Admitting Physician Requests: Admit Condition: Stable Melani Wright MD Jun 01, 2017 07:52
[2017-06-01] MEDS ORDERED: SODIUM CHLOR 0.9% 1000 ML INJ 1,000 ML IV ONE (08:15)
[2017-06-01 08:51] LABS: BACTERIA, URINE RARE /hpf; BILIRUBIN, URINE NEG (NEG); BLOOD, URINE TRACE (NEG); GLUCOSE,URINE TRACE mg/dL (NEG); HYALINE CAST, URINE 1 /lpf (RARE); KETONE, URINE NEG (NEG); MUCUS URINE FEW /lpf (OCC); NITRITE,URINE NEG (NEG); URINE COLOR LIGHT-YELLOW (YELLW/STRAW); URINE LEUKOCYTE ESTERASE LARGE (NEG)
[2017-06-01] MEDS ORDERED: cefTRIAXone INJ 1,000 MG in SODIUM CHLORIDE 0.9% INJ 100 ML IV ONE (09:15)
[2017-06-01] MEDS ORDERED: ACETAMINOPHEN/HYDROcodone 325 MG/5 MG TAB PO PRN (09:45)
[2017-06-01] MEDS ORDERED: GLUCAGON 1 MG/ML VIAL OTHER PRN (09:45)
[2017-06-01] MEDS ORDERED: ACETAMINOPHEN/HYDROcodone 325 MG/10 MG TAB PO PRN (09:45)
[2017-06-01] MEDS ORDERED: ACETAMINOPHEN 325 MG TAB PO PRN (09:45)
[2017-06-01] MEDS ORDERED: MORPHINE SULFATE 4 MG/ML INJ IV PUSH PRN (09:45)
[2017-06-01] MEDS ORDERED: SENNOSIDES 8.6 MG TAB PO PRN (09:45)
[2017-06-01] MEDS ORDERED: DEXTROSE 50% IN WATER 50 ML VIAL(D50) IV PUSH PRN (09:45)
[2017-06-01] MEDS ORDERED: MAGNESIUM HYDROXIDE SUSP 30 ML CUP PO PRN (09:45)
[2017-06-01] MEDS ORDERED: NALOXONE HCL 0.4 MG/ML AMP IV PUSH PRN (09:45)
[2017-06-01] MEDS: ENOXAPARIN SODIUM 40 MG/0.4 ML SYRINGE SQ SCH (10:52)
[2017-06-01] MEDS: SODIUM CHLOR 0.9% 1000 ML INJ 1,000 ML IV SCH ×2 (10:52→21:40)
[2017-06-01] MEDS: INSULIN ASPART SUPPLEMENTAL SCALE SQ SCH ×3 (11:01→20:20)
[2017-06-01] MEDS ORDERED: PILL SPLITTER OTHER PRN (12:15)
--- NOTE | 2017-06-01 14:15 | HHI.HP ---
[facility] Service [facility] Primary Care Physician Unknown Admission Diagnosis [place], ureteral stent, pyelo Diagnoses: Chief Complaint: Left flank pain Travel History International Travel<30 Days: No Contact w/Intl Traveler <30 Da: No Traveled to Known Affected Are: No History of Present Illness 82 years old female with history of nephrolithiasis she follow with Dr. ambrose , she had left ureteral stent placed, presented to the ED complaining of severe left flank pain without fever or nausea or vomiting, she is not sure if he transferred to the groin. Positive dysuria. No diarrhea or other associated symptoms. In ED CT scan of the abdomen showed possible re-obstruction of the JOANNA stent with hydronephrosis suspicion concerning for pyelonephritis even though patient did not have does not have leukocytosis Review of Systems All systems reviewed and was positive for what is mentioned in history of present illness otherwise negative Past Family Social History Past Medical History HTN DM Hypercholesterolemia Nephrolithiasis Past Surgical History Ureteral stent Allergies: Coded Allergies: aspirin (Unverified Allergy, Intermediate, Burning, 06/01/17) Fish Containing Products (Unverified Allergy, Unknown, 06/01/17) adhesive (Unverified Allergy, Unknown, 06/01/17) amlodipine (Unverified Allergy, Unknown, 06/01/17) bupropion (Unverified Allergy, Unknown, 06/01/17) duloxetine (Unverified Allergy, Unknown, 06/01/17) escitalopram (Unverified Allergy, Unknown, 06/01/17) pseudoephedrine (Unverified Allergy, Unknown, 06/01/17) rosiglitazone (Unverified Allergy, Unknown, 06/01/17) scopolamine (Unverified Allergy, Unknown, 06/01/17) valsartan (Unverified Allergy, Unknown, 06/01/17) Family History Review with the patient,not aware of significant medical history related to her problem runs in the family Social History Denied tobacco alcohol or illicit drug abuse Physical Exam Vital Signs Vital Signs Date Time Temp Pulse Resp B/P (MAP) Pulse Ox O2 Delivery O2 Flow Rate FiO2 06/01/17 12:53 98.5 72 16 120/57 (78) 95 06/01/17 12:14 16 06/01/17 11:00 82 16 145/76 (99) 100 Room Air 06/01/17 09:16 14 06/01/17 09:00 71 17 145/68 (93) 100 Room Air 06/01/17 08:00 81 18 153/81 (105) 99 Room Air 06/01/17 06:27 69 06/01/17 06:24 98.8 69 18 173/89 (117) 93 Physical Exam GENERAL: This is a well-nourished, well-developed patient, in no apparent distress. SKIN: No rashes, warm and dry HEAD: Atraumatic. Normocephalic. EYES: Pupils equal round and reactive. Extraocular motions intact. No scleral icterus. ENT: Nose without bleeding, or drainage, Airway patent. NECK: Trachea midline. Supple CARDIOVASCULAR: Regular rate and rhythm without murmurs, gallops, or rubs. RESPIRATORY: Fair air entry bilaterally. No wheezes, rales, or rhonchi. GASTROINTESTINAL: Abdomen soft, non-tender, nondistended. Positive bowel sounds MUSCULOSKELETAL: Extremities without clubbing, cyanosis, or edema. Pedal pulses appreciated NEUROLOGICAL: Awake and alert. Moves all extremity. Normal speech.no focal neurological deficit CVA: Positive CVA tenderness on the left side Laboratory Laboratory Tests Test 06/01/17 06:50 06/01/17 08:20 White Blood Count 9.6 Red Blood Count 4.14 Hemoglobin 13.2 Hematocrit 38.5 Mean Corpuscular Volume 93.0 Mean Corpuscular Hemoglobin 32.0 Mean Corpuscular Hemoglobin Concent 34.4 Red Cell Distribution Width 14.9 Platelet Count 206 Mean Platelet Volume 8.7 Neutrophils (%) (Auto) 78.7 Lymphocytes (%) (Auto) 10.3 Monocytes (%) (Auto) 9.9 Eosinophils (%) (Auto) 0.9 Basophils (%) (Auto) 0.2 Neutrophils # (Auto) 7.6 Lymphocytes # (Auto) 1.0 Monocytes # (Auto) 1.0 Eosinophils # (Auto) 0.1 Basophils # (Auto) 0.0 CBC Comment DIFF FINAL Differential Comment Prothrombin Time 10.8 Prothromb Time International Ratio 1.1 Activated Partial Thromboplast Time 27.2 Blood Urea Nitrogen 15 Creatinine 1.01 Random Glucose 177 Total Protein 7.0 Albumin 3.5 Calcium Level 9.2 Alkaline Phosphatase 100 Aspartate Amino Transf (AST/SGOT) 18 Alanine Aminotransferase (ALT/SGPT) 21 Total Bilirubin 2.0 Sodium Level 137 Potassium Level 3.2 Chloride Level 100 Carbon Dioxide Level 30.3 Anion Gap 7 Estimat Glomerular Filtration Rate 52 Lipase 135 Urine Color LIGHT-YELLOW Urine Turbidity CLEAR Urine pH 8.0 Urine Specific [place] 1.007 Urine Protein NEG Urine Glucose (UA) TRACE Urine Ketones NEG Urine Occult Blood TRACE Urine Nitrite NEG Urine Bilirubin NEG Urine Urobilinogen LESS THAN 2.0 Urine Leukocyte Esterase LARGE Urine RBC 4 Urine WBC 44 Urine Bacteria RARE Urine Hyaline Casts 1 Urine Mucus FEW Microscopic Urinalysis Comment CATH-CULTURE IND Date/Time Source Procedure Growth Status 06/01/17 08:20 Urine Catheterized Urine Urine Culture Pending Received Result Diagram: 06/01/17 0650 06/01/17 0650 Imaging Last Impressions Abdomen/Pelvis CT 06/01/17 0631 Signed Impressions: Service Date/Time: Thursday, June 01, 2017 06:41 - CONCLUSION: 1. Left ureteral stent appears slightly more distal in position than expected but should still be functional as visualized. Given the moderate hydronephrosis and perinephric edema, stent occlusion is suspected. 2. There is a persistent large stone in the left upper ureter. MD Magdi Nathi VTE Risk Assessment Caprini VTE Risk Assessment: Mod/High Risk (score >= 2) Caprini Risk Assessment Model Point Value = 1 Point Value = 2 Point Value = 3 Point Value = 5 Age 41-60 Minor surgery BMI > 25 kg/m2 Swollen legs Varicose veins or History of unexplained or recurrent spontaneous Oral contraceptives or hormone replacement Sepsis (< 1 month) Serious lung disease, including pneumonia (< 1 month) Abnormal pulmonary function Acute myocardial infarction Congestive heart failure (< 1 month) History of inflammatory bowel disease Medical patient at bed rest Age 61-74 Arthroscopic surgery Major open surgery (> 45 min) Laparoscopic surgery (> 45 min) Malignancy Confined to bed (> 72 hours) Immobilizing plaster cast Central venous access Age >= 75 History of VTE Family history of VTE Factor V Leiden Prothrombin [id number] Lupus anticoagulant Anticardiolipin antibodies Elevated serum homocysteine Heparin-induced thrombocytopenia Other congenital or acquired thrombophilia Stroke (< 1 month) Elective arthroplasty Hip, pelvis, or leg fracture Acute spinal cord injury (< 1 month) Prophylaxis Regimen Total Risk Factor Score Risk Level Prophylaxis Regimen 0-1 Low Early ambulation 2 Moderate Order ONE of the following: *Sequential Compression Device (SCD) *Heparin 5000 units SQ BID 3-4 Higher Order ONE of the following medications: *Heparin 5000 units SQ TID *Enoxaparin/Lovenox 40 mg SQ daily (WT < 150 kg, CrCl > 30 mL/min) *Enoxaparin/Lovenox 30 mg SQ daily (WT < 150 kg, CrCl > 10-29 mL/min) *Enoxaparin/Lovenox 30 mg SQ BID (WT < 150 kg, CrCl > 30 mL/min) AND/OR *Sequential Compression Device (SCD) 5 or more Highest Order ONE of the following medications: *Heparin 5000 units SQ TID (Preferred with Epidurals) *Enoxaparin/Lovenox 40 mg SQ daily (WT < 150 kg, CrCl > 30 mL/min) *Enoxaparin/Lovenox 30 mg SQ daily (WT < 150 kg, CrCl > 10-29 mL/min) *Enoxaparin/Lovenox 30 mg SQ BID (WT < 150 kg, CrCl > 30 mL/min) AND *Sequential Compression Device (SCD) Assessment and Plan Assessment and Plan 82 years old female with history of nephrolithiasis and left ureteral stenting came with Severe left flank pain Suspect left ureteral stenting obstruction Left hydronephrosis rule out pyelonephritis History of hypertension, hyperlipidemia DVT prophylaxis Plan: Admit for observation IV hydration Pain management with morphine Consult urology Dr. halie Guerra IV Monitor vitals Hold chemical DVT prophylaxis for possible urology intervention, SCD for now Discussed Condition With Patient i and ED admitter Kalee Reynoso MD Jun 01, 2017 14:15
[2017-06-01] MEDS: GABAPENTIN 300 MG CAP PO SCH ×2 (15:34→17:50)
[2017-06-01] MEDS: ACETAMINOPHEN/HYDROcodone 325 MG/7.5 MG TAB PO PRN ×2 (15:41→20:15)
--- NOTE | 2017-06-01 19:21 | PD.CONS ---
HPI Service Urology Consult Requested By Reason for Consult Nephrolithiasis Primary Care Physician Unknown Diagnosis: History of Present Illness 82yo female with left nephrolithiasis. Patient was seen by Dr. Trujillo in the past who placed a left ureteral stent for her stone burden. She now presents due to persistent left flank pain. No fevers, no N/V. It appears she has a scheduled procedure with Dr. Trujillo on 06/04/17. Review of Systems ROS Limitations: Clinical Condition Constitutional: DENIES: Fever Eyes: DENIES: Blurred vision Ears, nose, mouth, throat: COMPLAINS OF: Hearing loss Respiratory: DENIES: Cough Cardiovascular: DENIES: Chest pain Gastrointestinal: COMPLAINS OF: Abdominal pain Genitourinary: COMPLAINS OF: Urinary frequency, Urgency Musculoskeletal: COMPLAINS OF: Back pain Neurologic: DENIES: Headache Psychiatric: DENIES: Anxiety Except as stated in HPI: all other systems reviewed are Neg Past Family Social History Past Medical History HTN DM Hypercholesterolemia Nephrolithiasis Past Surgical History Ureteral stent Reported Medications Reported Meds & Active Scripts Active Fentanyl Patch 72 HR (Fentanyl) 50 Mcg/Hr Patch 50 Mcg T-DERMAL Q72H Remove old patch when new one placed. Reported Potassium Chloride ER (Potassium Chloride) 20 Meq Tab 20 Meq PO EVERY OTHER DAY Lasix (Furosemide) 40 Mg Tab 40 Mg PO EVERY OTHER DAY Prilosec (Omeprazole Magnesium) 20 Mg Tab 20 Mg PO DAILY Neurontin (Gabapentin) 300 Mg Cap 300 Mg PO TID Metoprolol Tartrate 25 Mg Tab 12.5 Mg PO BID Atorvastatin (Atorvastatin Calcium) 10 Mg Tab 10 Mg PO HS Lantus Inj (Insulin Glargine) 1,000 Unit/10 Ml Vial 10 Units SQ HS Aspirin Low Dose (Aspirin) 81 Mg Chew 81 Mg CHEW DAILY Hydralazine HCl 25 Mg Tablet 25 Mg PO BID Nateglinide 120 Mg Tab 120 Mg PO TIDAC Clonazepam 0.5 Mg Tab 0.25 Mg PO HS Actos (Pioglitazone HCl) 30 Mg Tab 30 Mg PO DAILY Levoxyl (Levothyroxine Sodium) 88 Mcg Tab 88 Mcg PO DAILY Allergies: Coded Allergies: aspirin (Unverified Allergy, Intermediate, Burning, 06/01/17) Fish Containing Products (Unverified Allergy, Unknown, 06/01/17) adhesive (Unverified Allergy, Unknown, 06/01/17) amlodipine (Unverified Allergy, Unknown, 06/01/17) bupropion (Unverified Allergy, Unknown, 06/01/17) duloxetine (Unverified Allergy, Unknown, 06/01/17) escitalopram (Unverified Allergy, Unknown, 06/01/17) pseudoephedrine (Unverified Allergy, Unknown, 06/01/17) rosiglitazone (Unverified Allergy, Unknown, 06/01/17) scopolamine (Unverified Allergy, Unknown, 06/01/17) valsartan (Unverified Allergy, Unknown, 06/01/17) Active Ordered Medications Current Medications Medications (Trade) Dose Ordered Sig/Faheem Route Start Time Stop Time Status Last Admin Sodium Chloride 1,000 ml @ 100 mls/hr Q10H IV 06/01/17 11:00 06/01/17 10:52 (Tylenol) 650 mg Q4H PRN PO 06/01/17 09:45 (Zofran Inj) 4 mg Q6H PRN IVP 06/01/17 09:45 (Lovenox Inj) 40 mg Q24H SQ 06/01/17 11:00 06/01/17 10:52 (Rea 5-325 Mg) 1 tab Q4H PRN PO 06/01/17 09:45 06/01/17 11:02 (Rea 7.5-325 Mg) 1 tab Q4H PRN PO 06/01/17 09:45 06/01/17 15:41 (Morphine Inj) 4 mg Q3H PRN IV PUSH 06/01/17 09:45 (Narcan Inj) 0.4 mg UNSCH PRN IV PUSH 06/01/17 09:45 (Pauly-Colace) 1 tab BID PO 06/01/17 21:00 (Milk Of Magnesia Liq) 30 ml Q12H PRN PO 06/01/17 09:45 (Senokot) 17.2 mg Q12H PRN PO 06/01/17 09:45 Ceftriaxone Sodium 1000 mg/ Sodium Chloride 100 ml @ 200 mls/hr Q24H IV 06/02/17 09:00 (Aspirin Chew) 81 mg DAILY CHEW 06/02/17 09:00 Future Hold (Lipitor) 10 mg HS PO 06/01/17 21:00 (KlonoPIN) 0.25 mg HS PO 06/01/17 21:00 (Neurontin) 300 mg TID PO 06/01/17 13:00 06/01/17 17:50 (Apresoline) 25 mg BID PO 06/01/17 21:00 (Synthroid) 88 mcg DAILY@0600 PO 06/02/17 06:00 (Lopressor) 12.5 mg BID PO 06/01/17 21:00 (Protonix) 20 mg DAILY PO 06/02/17 09:00 (NovoLOG SUPPLEMENTAL SCALE) 1 ACHS SLIDING SCALE SQ 06/01/17 12:00 06/01/17 11:01 (Glucagon Inj) 1 mg UNSCH PRN OTHER 06/01/17 09:45 (D50w (Vial) Inj) 50 ml UNSCH PRN IV PUSH 06/01/17 09:45 (Pill Splitter) 1 ea UNSCH PRN OTHER 06/01/17 12:15 Family History Family history reviewed and noncontributory to present illness Social History No smoking history Physical Exam Vital Signs Date Time Temp Pulse Resp B/P (MAP) Pulse Ox O2 Delivery O2 Flow Rate FiO2 06/01/17 16:00 98.2 71 16 124/63 (83) 91 06/01/17 12:53 98.5 72 16 120/57 (78) 95 06/01/17 12:14 16 06/01/17 11:00 82 16 145/76 (99) 100 Room Air 06/01/17 09:16 14 06/01/17 09:00 71 17 145/68 (93) 100 Room Air 06/01/17 08:00 81 18 153/81 (105) 99 Room Air 06/01/17 06:27 69 06/01/17 06:24 98.8 69 18 173/89 (117) 93 Physical Exam GENERAL: This is a well-nourished, well-developed patient, in no apparent distress. SKIN: No rashes, ecchymoses or lesions. Cool and dry. HEAD: Atraumatic. Normocephalic. EYES: Pupils equal round and reactive. Extraocular motions intact. ENT: Nose without bleeding, purulent drainage. Airway patent. NECK: Trachea midline. No JVD or lymphadenopathy. CARDIOVASCULAR: Normal pulse RESPIRATORY: nonlabored GASTROINTESTINAL: Normal pulse MUSCULOSKELETAL: Extremities without clubbing, cyanosis, or edema. NEUROLOGICAL: Awake and alert. Motor and sensory grossly within normal limits. Normal speech. Lab results reviewed: Yes Laboratory Tests Test 06/01/17 06:50 06/01/17 08:20 White Blood Count 9.6 Red Blood Count 4.14 Hemoglobin 13.2 Hematocrit 38.5 Mean Corpuscular Volume 93.0 Mean Corpuscular Hemoglobin 32.0 Mean Corpuscular Hemoglobin Concent 34.4 Red Cell Distribution Width 14.9 Platelet Count 206 Mean Platelet Volume 8.7 Neutrophils (%) (Auto) 78.7 Lymphocytes (%) (Auto) 10.3 Monocytes (%) (Auto) 9.9 Eosinophils (%) (Auto) 0.9 Basophils (%) (Auto) 0.2 Neutrophils # (Auto) 7.6 Lymphocytes # (Auto) 1.0 Monocytes # (Auto) 1.0 Eosinophils # (Auto) 0.1 Basophils # (Auto) 0.0 CBC Comment DIFF FINAL Differential Comment Prothrombin Time 10.8 Prothromb Time International Ratio 1.1 Activated Partial Thromboplast Time 27.2 Blood Urea Nitrogen 15 Creatinine 1.01 Random Glucose 177 Total Protein 7.0 Albumin 3.5 Calcium Level 9.2 Alkaline Phosphatase 100 Aspartate Amino Transf (AST/SGOT) 18 Alanine Aminotransferase (ALT/SGPT) 21 Total Bilirubin 2.0 Sodium Level 137 Potassium Level 3.2 Chloride Level 100 Carbon Dioxide Level 30.3 Anion Gap 7 Estimat Glomerular Filtration Rate 52 Lipase 135 Urine Color LIGHT-YELLOW Urine Turbidity CLEAR Urine pH 8.0 Urine Specific [place] 1.007 Urine Protein NEG Urine Glucose (UA) TRACE Urine Ketones NEG Urine Occult Blood TRACE Urine Nitrite NEG Urine Bilirubin NEG Urine Urobilinogen LESS THAN 2.0 Urine Leukocyte Esterase LARGE Urine RBC 4 Urine WBC 44 Urine Bacteria RARE Urine Hyaline Casts 1 Urine Mucus FEW Microscopic Urinalysis Comment CATH-CULTURE IND Date/Time Source Procedure Growth Status 06/01/17 08:20 Urine Catheterized Urine Urine Culture Pending Received Result Diagram: 06/01/1750 06/01/1750 Personally reviewed images: Yes Imaging Last Impressions Abdomen/Pelvis CT 06/01/1731 Signed Impressions: Service Date/Time: Thursday, June 01, 2017 06:41 - CONCLUSION: 1. Left ureteral stent appears slightly more distal in position than expected but should still be functional as visualized. Given the moderate hydronephrosis and perinephric edema, stent occlusion is suspected. 2. There is a persistent large stone in the left upper ureter. Marco Antonio Ventura MD Assessment and Plan Problem List: (1) Renal calculus, left ICD Code: N20.0 - Calculus of kidney (2) Kidney stone ICD Code: N20.0 - Calculus of kidney Status: Acute (3) Pyelonephritis ICD Code: N12 - Tubulo-interstitial nephritis, not specified as acute or chronic Status: Acute Assessment and Plan -Left ureteral stent noted on Ct scan with several stones noted adjacent to stent -Appears patient has lithotripsy procedure scheduled with Dr. Trujillo on Friday -Overnight observation with pain control -Will contact Dr. Trujillo in the am for plan Zhou Gordon MD Jun 01, 2017 19:21
[2017-06-01] MEDS: clonazePAM 0.5 MG TAB PO SCH (20:17)
[2017-06-01] MEDS: ATORVASTATIN 10 MG TAB PO SCH (20:17)
[2017-06-01] MEDS: DOCUSATE SODIUM 50 MG/SENNA 8.6 MG TAB PO SCH (20:18)
[2017-06-01] MEDS: METOPROLOL TARTRATE 25 MG TAB PO SCH (21:37)
[2017-06-01] MEDS: hydrALAZINE HCL 25 MG TAB PO SCH (21:38)
[2017-06-02] VITALS (9 sets, daily range): BP systolic 119–163; BP diastolic 63–76; PULSE 60–69; RESP 16–19; TEMP 97.1–100; O2SAT 92–94
[2017-06-02] MEDS: ACETAMINOPHEN/HYDROcodone 325 MG/7.5 MG TAB PO PRN ×2 (02:19→09:11)
[2017-06-02] MEDS: LEVOTHYROXINE SODIUM 88 MCG TAB PO SCH (05:00)
[2017-06-02] MEDS: SODIUM CHLOR 0.9% 1000 ML INJ 1,000 ML IV SCH ×2 (05:03→17:00)
[2017-06-02 07:16] LABS: AUTOMATED NEUTROPHIL # 4.9 TH/MM3 (1.8-7.7); BASOPHIL % 0.3 % (0.0-2.0); EOSINOPHIL # 0.1 TH/MM3 (0-0.4); EOSINOPHIL % 0.7 % (0.0-4.0); HEMATOCRIT 35.6 % (35.0-46.0); HEMOGLOBIN 12.2 GM/DL (11.6-15.3); LYMPH % 18.6 % (9.0-44.0); LYMPHOCYTE # 1.3 TH/MM3 (1.0-4.8); MEAN CELL VOLUME 93.6 FL (80.0-100.0); MEAN CORPUSCULAR HEMOGLOBIN 32.1 PG (27.0-34.0); MEAN CORPUSCULAR HGB CONC 34.3 % (32.0-36.0); MEAN PLATELET VOLUME 8.5 FL (7.0-11.0); MONO % 11.5 % (0.0-8.0); MONOCYTE # 0.8 TH/MM3 (0-0.9); NEUT % 68.9 % (16.0-70.0); PLATELET COUNT 178 TH/MM3 (150-450); RED BLOOD COUNT 3.81 MIL/MM3 (4.00-5.30); RED CELL DISTRIBUTION WIDTH 14.7 % (11.6-17.2); WHITE BLOOD COUNT 7.1 TH/MM3 (4.0-11.0)
[2017-06-02 07:43] LABS: BICARBONATE 27.8 MEQ/L (21.0-32.0); CALCIUM 8.5 MG/DL (8.5-10.1); CREATININE 0.77 MG/DL (0.50-1.00)
[2017-06-02] MEDS: INSULIN ASPART SUPPLEMENTAL SCALE SQ SCH ×4 (08:00→21:00)
[2017-06-02] MEDS ORDERED: ASPIRIN 81 MG CHEW TAB CHEW SCH (09:00)
[2017-06-02] MEDS: DOCUSATE SODIUM 50 MG/SENNA 8.6 MG TAB PO SCH ×2 (09:10→21:18)
[2017-06-02] MEDS: GABAPENTIN 300 MG CAP PO SCH ×3 (09:11→18:00)
[2017-06-02] MEDS: PANTOPRAZOLE SOD 20 MG DELAYED RELEASE TAB PO SCH (09:11)
[2017-06-02] MEDS: hydrALAZINE HCL 25 MG TAB PO SCH ×2 (09:11→21:18)
[2017-06-02] MEDS: cefTRIAXone INJ 1,000 MG in SODIUM CHLORIDE 0.9% INJ 100 ML IV SCH (09:12)
[2017-06-02] MEDS: METOPROLOL TARTRATE 25 MG TAB PO SCH ×2 (09:18→21:16)
[2017-06-02] MEDS: ENOXAPARIN SODIUM 40 MG/0.4 ML SYRINGE SQ SCH (09:29)
--- NOTE | 2017-06-02 12:33 | HHI.PR ---
Subjective Patient symptoms today Reports pain is presently controlled. Patient prefers Dilaudid for pain management. Objective Vital Signs Vital Signs Date Time Temp Pulse Resp B/P (MAP) Pulse Ox O2 Delivery O2 Flow Rate FiO2 06/02/17 10:11 18 06/02/17 08:00 98.0 64 17 158/72 (100) 92 06/02/17 05:38 97.1 69 19 132/70 (90) 93 06/02/17 04:52 18 06/02/17 04:00 68 06/02/17 00:49 100.0 68 16 140/76 (97) 94 06/01/17 21:46 21 06/01/17 20:00 99.2 74 16 143/78 (99) 94 06/01/17 16:00 98.2 71 16 124/63 (83) 91 06/01/17 12:53 98.5 72 16 120/57 (78) 95 Intake & Output 06/02/17 06/02/17 07:00 19:00 Intake Total 0 ml 100 ml Balance 0 ml 100 ml Intake Oral 0 ml IV Total 100 ml # Voids 4 Result Diagram: 06/02/17 0641 06/02/17 0641 Objective Remarks Abdomen soft, nondistended, nontender No CVA tenderness Extremities well-perfused Medications and IVs Current Medications Medications (Trade) Dose Ordered Sig/Faheem Route Start Time Stop Time Status Last Admin Sodium Chloride 1,000 ml @ 100 mls/hr Q10H IV 06/01/17 11:00 06/02/17 05:03 (Tylenol) 650 mg Q4H PRN PO 06/01/17 09:45 (Zofran Inj) 4 mg Q6H PRN IVP 06/01/17 09:45 (Lovenox Inj) 40 mg Q24H SQ 06/01/17 11:00 06/02/17 09:29 (Sidon 5-325 Mg) 1 tab Q4H PRN PO 06/01/17 09:45 06/01/17 11:02 (Sidon 7.5-325 Mg) 1 tab Q4H PRN PO 06/01/17 09:45 06/02/17 09:11 (Morphine Inj) 4 mg Q3H PRN IV PUSH 06/01/17 09:45 06/02/17 04:47 (Narcan Inj) 0.4 mg UNSCH PRN IV PUSH 06/01/17 09:45 (Pauly-Colace) 1 tab BID PO 06/01/17 21:00 06/02/17 09:10 (Milk Of Magnesia Liq) 30 ml Q12H PRN PO 06/01/17 09:45 (Senokot) 17.2 mg Q12H PRN PO 06/01/17 09:45 Ceftriaxone Sodium 1000 mg/ Sodium Chloride 100 ml @ 200 mls/hr Q24H IV 06/02/17 09:00 06/02/17 09:12 (Aspirin Chew) 81 mg DAILY CHEW 06/02/17 09:00 Future Hold (Lipitor) 10 mg HS PO 06/01/17 21:00 06/01/17 20:17 (KlonoPIN) 0.25 mg HS PO 06/01/17 21:00 06/01/17 20:17 (Neurontin) 300 mg TID PO 06/01/17 13:00 06/02/17 09:11 (Apresoline) 25 mg BID PO 06/01/17 21:00 06/02/17 09:11 (Synthroid) 88 mcg DAILY@0600 PO 06/02/17 06:00 06/02/17 05:00 (Lopressor) 12.5 mg BID PO 06/01/17 21:00 06/02/17 09:18 (Protonix) 20 mg DAILY PO 06/02/17 09:00 06/02/17 09:11 (NovoLOG SUPPLEMENTAL SCALE) 1 ACHS SLIDING SCALE SQ 06/01/17 12:00 06/01/17 11:01 (Glucagon Inj) 1 mg UNSCH PRN OTHER 06/01/17 09:45 (D50w (Vial) Inj) 50 ml UNSCH PRN IV PUSH 06/01/17 09:45 (Pill Splitter) 1 ea UNSCH PRN OTHER 06/01/17 12:15 Assessment and Plan Problem List: (1) Renal calculus, left ICD Code: N20.0 - Calculus of kidney (2) Kidney stone ICD Code: N20.0 - Calculus of kidney Status: Acute (3) Pyelonephritis ICD Code: N12 - Tubulo-interstitial nephritis, not specified as acute or chronic Status: Acute Assessment and Plan -Left ureteral stent noted on Ct scan with several stones noted adjacent to stent -Appears patient has lithotripsy procedure scheduled with Dr. Trujillo on Friday -Overnight observation with pain control -Will contact Dr. Trujillo in the am for plan 06/02/2017 Urologic impression: 1. Obstructing left proximal ureteral stones status post stent placement 2. Left flank pain related to stent irritation Recommendations: 1. Will prescribe oral Dilaudid for pain management 2. Proceed with left-sided extrapleural shockwave lithotripsy this Friday as scheduled 3. N.p.o. after midnight Friday night Marco Trujillo MD Jun 02, 2017 12:33
--- NOTE | 2017-06-02 15:56 | HHI.PR ---
Subjective Remarks Patient's hard hearing Still having left flank pain, with positive CVA tenderness on exam No fever or leukocytosis Objective Vitals Vital Signs Date Time Temp Pulse Resp B/P (MAP) Pulse Ox O2 Delivery O2 Flow Rate FiO2 06/02/17 14:07 93 06/02/17 12:00 98.0 60 17 119/63 (81) 93 06/02/17 10:11 18 06/02/17 08:00 98.0 64 17 158/72 (100) 92 06/02/17 05:38 97.1 69 19 132/70 (90) 93 06/02/17 04:52 18 06/02/17 04:00 68 06/02/17 00:49 100.0 68 16 140/76 (97) 94 06/01/17 21:46 21 06/01/17 20:00 99.2 74 16 143/78 (99) 94 06/01/17 16:00 98.2 71 16 124/63 (83) 91 I/O 06/01/17 06/01/17 06/01/17 06/02/17 06/02/17 06/02/17 07:00 15:00 23:00 07:00 15:00 23:00 Intake Total 1000 ml 0 ml 100 ml Balance 1000 ml 0 ml 100 ml Intake Oral 0 ml IV Total 1000 ml 100 ml # Voids 2 4 Result Diagram: 06/02/1764006/02/17 06 Objective Remarks GENERAL: This is a well-nourished, well-developed patient, in no apparent distress. SKIN: No rashes, warm and dry HEAD: Atraumatic. Normocephalic. EYES: Pupils equal round and reactive. Extraocular motions intact. No scleral icterus. ENT: Nose without bleeding, or drainage, Airway patent. NECK: Trachea midline. Supple CARDIOVASCULAR: Regular rate and rhythm without murmurs, gallops, or rubs. RESPIRATORY: Fair air entry bilaterally. No wheezes, rales, or rhonchi. GASTROINTESTINAL: Abdomen soft, non-tender, nondistended. Positive bowel sounds MUSCULOSKELETAL: Extremities without clubbing, cyanosis, or edema. Pedal pulses appreciated NEUROLOGICAL: Awake and alert. Moves all extremity. Normal speech.no focal neurological deficit CVA tenderness positive on the left side A/P Assessment and Plan 82 years old female with history of nephrolithiasis and left ureteral stenting came with Severe left flank pain Suspect left ureteral stenting obstruction Left hydronephrosis rule out pyelonephritis History of hypertension, hyperlipidemia DVT prophylaxis Plan: Appreciate urology consultation, plan for Dr. ambrose to see patient today for further recommendation IV hydration Pain management with morphine Rocephin IV Monitor vitals Hold chemical DVT prophylaxis for possible urology intervention, SCD for now Addendum patient seen by Dr. suárez plan for left-sided extrapleural shockwave lithotripsy this Friday as scheduled N.p.o. after midnight Friday night Kalee Reynoso MD Jun 02, 2017 15:56
[2017-06-02] MEDS: HYDROmorphone HCL 2 MG TAB PO PRN ×2 (16:59→22:45)
[2017-06-02] MEDS: clonazePAM 0.5 MG TAB PO SCH (21:17)
[2017-06-02] MEDS: ATORVASTATIN 10 MG TAB PO SCH (21:17)
[2017-06-03] VITALS (8 sets, daily range): BP systolic 126–171; BP diastolic 71–91; PULSE 58–72; RESP 18–20; TEMP 97.2–99.3; O2SAT 91–95
[2017-06-03] MEDS: SODIUM CHLOR 0.9% 1000 ML INJ 1,000 ML IV SCH ×4 (02:23→23:38)
[2017-06-03] MEDS: LEVOTHYROXINE SODIUM 88 MCG TAB PO SCH (04:48)
[2017-06-03] MEDS: HYDROmorphone HCL 2 MG TAB PO PRN ×3 (04:52→22:01)
[2017-06-03] MEDS: INSULIN ASPART SUPPLEMENTAL SCALE SQ SCH ×4 (07:38→20:09)
[2017-06-03] MEDS: PANTOPRAZOLE SOD 20 MG DELAYED RELEASE TAB PO SCH (08:55)
[2017-06-03] MEDS: GABAPENTIN 300 MG CAP PO SCH ×4 (08:55→17:51)
[2017-06-03] MEDS: hydrALAZINE HCL 25 MG TAB PO SCH ×2 (08:55→20:01)
[2017-06-03] MEDS: DOCUSATE SODIUM 50 MG/SENNA 8.6 MG TAB PO SCH ×3 (08:55→20:02)
[2017-06-03] MEDS: cefTRIAXone INJ 1,000 MG in SODIUM CHLORIDE 0.9% INJ 100 ML IV SCH (08:55)
[2017-06-03] MEDS: METOPROLOL TARTRATE 25 MG TAB PO SCH ×2 (08:55→20:01)
[2017-06-03] MEDS: ONDANSETRON HCL 4 MG/2 ML VIAL IVP PRN ×3 (09:02→20:09)
[2017-06-03] MEDS ORDERED: LORA0.5T PO (10:12)
[2017-06-03] MEDS ORDERED: PROZ20CA11 PO (10:17)
[2017-06-03] MEDS ORDERED: LORA1TAB12 PO (10:21)
[2017-06-03] MEDS ORDERED: DOCU100C15 PO (10:21)
[2017-06-03] MEDS: ENOXAPARIN SODIUM 40 MG/0.4 ML SYRINGE SQ SCH (11:21)
[2017-06-03] MEDS: FLUoxetine HCL 20 MG CAP PO SCH (11:41)
--- NOTE | 2017-06-03 12:41 | HHI.PR ---
Subjective Remarks Discussed with patient and her daughter multiple questions She has been nauseous today she think this is because of the pain medication Afebrile, plan for lithotripsy in a.m. Objective Vitals Vital Signs Date Time Temp Pulse Resp B/P (MAP) Pulse Ox O2 Delivery O2 Flow Rate FiO2 06/03/17 08:00 97.2 58 20 162/77 (105) 95 06/03/17 04:10 62 06/03/17 00:47 61 06/03/17 00:00 98.5 64 18 151/76 (101) 91 06/02/17 20:01 67 06/02/17 20:00 98.5 66 18 163/76 (105) 94 06/02/17 17:59 18 06/02/17 16:00 97.5 68 17 142/68 (92) 94 06/02/17 14:07 93 I/O 06/02/17 06/02/17 06/02/17 06/03/17 06/03/17 06/03/17 07:00 15:00 23:00 07:00 15:00 23:00 Intake Total 0 ml 100 ml 1720 ml Output Total 300 ml Balance 0 ml 100 ml 1420 ml Intake Oral 0 ml 720 ml IV Total 100 ml 1000 ml Output Urine Total 300 ml # Voids 4 6 17 # Bowel Movements 0 Result Diagram: 06/02/17 0641 06/02/17 0641 Objective Remarks GENERAL: This is a well-nourished, well-developed patient, in no apparent distress. SKIN: No rashes, warm and dry HEAD: Atraumatic. Normocephalic. EYES: Pupils equal round and reactive. Extraocular motions intact. No scleral icterus. ENT: Nose without bleeding, or drainage, Airway patent. NECK: Trachea midline. Supple CARDIOVASCULAR: Regular rate and rhythm without murmurs, gallops, or rubs. RESPIRATORY: Fair air entry bilaterally. No wheezes, rales, or rhonchi. GASTROINTESTINAL: Abdomen soft, non-tender, nondistended. Positive bowel sounds MUSCULOSKELETAL: Extremities without clubbing, cyanosis, or edema. Pedal pulses appreciated NEUROLOGICAL: Awake and alert. Moves all extremity. Normal speech.no focal neurological deficit CVA tenderness positive on the left side A/P Assessment and Plan 82 years old female with history of nephrolithiasis and left ureteral stenting came with Severe left flank pain Suspect left ureteral stenting obstruction Left hydronephrosis rule out pyelonephritis History of hypertension, hyperlipidemia DVT prophylaxis Plan: Appreciate urology consultation, plan for lithotripsy in a.m. Try to continue IV hydration however patient does not like it because she has to go to urinate Pain management with morphine Rocephin IV Monitor vitals Hold chemical DVT prophylaxis for possible urology intervention, SCD for now Addendum patient seen by Dr. suárez plan for left-sided extrapleural shockwave lithotripsy this Friday as scheduled N.p.o. after midnight Friday night Kalee Reynoso MD Jun 03, 2017 12:41
[2017-06-03] MEDS: ATORVASTATIN 10 MG TAB PO SCH (20:00)
[2017-06-03] MEDS: clonazePAM 0.5 MG TAB PO SCH (20:01)
[2017-06-03] MEDS: LORazepam 0.5 MG TAB PO PRN (20:09)
[2017-06-04] VITALS: BP 151/72; PULSE 57; RESP 18; TEMP 98.2; O2SAT 94
[2017-06-04] MEDS ORDERED: LACTATED RINGER'S 1000 ML IV PRN (01:00)
[2017-06-04] MEDS ORDERED: SODIUM CHLORID 0.9% 500 ML IV PRN (01:00)
[2017-06-04] MEDS ORDERED: CHLORHEXIDINE GLUCONATE 2 % 1 PACK (2 CLOTHS) TOPICAL PRN (01:00)
[2017-06-04] MEDS ORDERED: POVIDONE IODINE 5% (ANTISEPSIS KIT) 4 APPLICATIONS EACH NARE PRN (01:00)
[2017-06-04 03:19] VITALS: PULSE 51
[2017-06-04] MEDS: LEVOTHYROXINE SODIUM 88 MCG TAB PO SCH (05:29)
[2017-06-04 08:00] VITALS: BP 171/86; PULSE 65; RESP 17; TEMP 98.8; O2SAT 94
[2017-06-04] MEDS: INSULIN ASPART SUPPLEMENTAL SCALE SQ SCH ×4 (08:00→22:26)
[2017-06-04] MEDS: PANTOPRAZOLE SOD 20 MG DELAYED RELEASE TAB PO SCH (08:55)
[2017-06-04] MEDS: hydrALAZINE HCL 25 MG TAB PO SCH ×3 (09:00→17:09)
[2017-06-04] MEDS: SODIUM CHLOR 0.9% 1000 ML INJ 1,000 ML IV SCH ×2 (09:00→11:45)
[2017-06-04] MEDS: METOPROLOL TARTRATE 25 MG TAB PO SCH ×2 (09:00→22:08)
[2017-06-04] MEDS: ENOXAPARIN SODIUM 40 MG/0.4 ML SYRINGE SQ SCH (09:00)
[2017-06-04] MEDS: cefTRIAXone INJ 1,000 MG in SODIUM CHLORIDE 0.9% INJ 100 ML IV SCH (09:00)
[2017-06-04] MEDS: FLUoxetine HCL 20 MG CAP PO SCH (09:00)
[2017-06-04] MEDS: DOCUSATE SODIUM 50 MG/SENNA 8.6 MG TAB PO SCH ×3 (09:00→22:07)
[2017-06-04] MEDS: GABAPENTIN 300 MG CAP PO SCH ×3 (09:00→17:09)
[2017-06-04] MEDS: LORazepam 0.5 MG TAB PO PRN ×2 (09:08→22:08)
[2017-06-04] MEDS: ONDANSETRON HCL 4 MG/2 ML VIAL IVP PRN (09:08)
--- NOTE | 2017-06-04 11:56 | HHI.PR ---
Subjective Remarks Patient seen and examined earlier today Going for lithotripsy later this afternoon Afebrile overnight, nausea Objective Vitals Vital Signs Date Time Temp Pulse Resp B/P (MAP) Pulse Ox O2 Delivery O2 Flow Rate FiO2 06/04/17 08:00 98.8 65 17 171/86 (114) 94 06/04/17 03:19 51 06/04/17 00:00 98.2 57 18 151/72 (98) 94 06/03/17 20:00 98.6 67 18 171/91 (117) 95 06/03/17 19:59 72 06/03/17 16:00 99.3 65 18 126/78 (94) 93 06/03/17 12:00 98.2 64 18 146/71 (96) 93 I/O 06/03/17 06/03/17 06/03/17 06/04/17 06/04/17 06/04/17 07:00 15:00 23:00 07:00 15:00 23:00 Intake Total 1100 ml 720 ml 240 ml Output Total 1150 ml 800 ml Balance 1100 ml -430 ml -560 ml Intake Oral 720 ml 240 ml IV Total 1100 ml Output Urine Total 1150 ml 800 ml # Voids 17 # Bowel Movements 0 Result Diagram: 06/02/17 0641 06/02/17 0641 Objective Remarks GENERAL: This is a well-nourished, well-developed patient, in no apparent distress. SKIN: No rashes, warm and dry HEAD: Atraumatic. Normocephalic. EYES: Pupils equal round and reactive. Extraocular motions intact. No scleral icterus. ENT: Nose without bleeding, or drainage, Airway patent. NECK: Trachea midline. Supple CARDIOVASCULAR: Regular rate and rhythm without murmurs, gallops, or rubs. RESPIRATORY: Fair air entry bilaterally. No wheezes, rales, or rhonchi. GASTROINTESTINAL: Abdomen soft, non-tender, nondistended. Positive bowel sounds MUSCULOSKELETAL: Extremities without clubbing, cyanosis, or edema. Pedal pulses appreciated NEUROLOGICAL: Awake and alert. Moves all extremity. Normal speech.no focal neurological deficit CVA tenderness positive on the left side A/P Assessment and Plan 82 years old female with history of nephrolithiasis and left ureteral stenting came with Severe left flank pain Suspect left ureteral stenting obstruction Left hydronephrosis rule out pyelonephritis History of hypertension, hyperlipidemia DVT prophylaxis Plan: Appreciate urology consultation, plan for lithotripsy today, monitor postprocedure, continue antiemetics and pain management Try to continue IV hydration however patient does not like it because she has to go to urinate Pain management with morphine Rocephin IV Monitor vitals Hold chemical DVT prophylaxis for possible urology intervention, SCD for now Addendum patient seen by Dr. suárez plan for left-sided extrapleural shockwave lithotripsy this Friday as scheduled N.p.o. after midnight Friday night Kalee Reynoso MD Jun 04, 2017 11:56
[2017-06-04] MEDS ORDERED: GLYCOPYRROLATE 1 MG/5 ML SYRINGE IV PUSH ONE (12:00)
[2017-06-04] MEDS ORDERED: PROPOFOL 200 MG/20 ML AMP IV ONE (12:00)
[2017-06-04] MEDS ORDERED: LIDOCAINE HCL 1% PF 5 ML SYRINGE OTHER ONE (12:00)
[2017-06-04] MEDS ORDERED: ePHEDrine/NS 25 MG/5 ML SYRINGE IV ONE (12:00)
[2017-06-04] MEDS ORDERED: ONDANSETRON HCL 4 MG/2 ML VIAL IV ONE (12:00)
[2017-06-04] MEDS ORDERED: DO NOT ADM ANY ANTICOAGULANT DRUGS PRN (14:09)
--- NOTE | 2017-06-04 14:10 | PD.OP ---
Operative Report Date of Surgery: Jun 04, 2017 Preoperative Diagnosis: (1) Ureteral calculus, left Postoperative Diagnosis: (1) Ureteral calculus, left Procedure: Extracorporeal shockwave lithotripsy left ureteral calculus Anesthesia: General Surgeon: Marco Trujillo Miller Kiln Dried Salt(s): None Operation and Findings: Indication for procedure: Case of a pleasant 82-year-old female with a large obstructing left proximal ureteral calculus who is status post recent left ureteral stent insertion. Patient presents now to undergo shockwave lithotripsy of this calculus. Operative procedure in detail: Patient was brought to the operating room suite and placed supine on the lithotripsy table. She was then placed under general anesthesia. After an appropriate timeout was undertaken, I proceeded with localization of the left proximal ureteral calculus with fluoroscopy. The patient separately received shockwave lithotripsy utilizing the Dornier mobile lithotripsy device. The patient received a total of 3000 shocks with a maximum power level setting of 6. At the conclusion of the procedure the stone was markedly electrical continuity tester in intensity consistent with fragmentation. The patient tolerated the procedure without complications and was transferred to the PACU in satisfactory condition. Marco Trujillo MD Jun 04, 2017 14:10
[2017-06-04] MEDS ORDERED: *morphine SULFATE 4 MG/ML PERIprocedure ONLY ONE (14:27)
[2017-06-04] MEDS ORDERED: MIDAZOLAM HCL 2 MG/2 ML VIAL ONE (14:43)
[2017-06-04 16:00] VITALS: BP 160/78; PULSE 78; RESP 17; TEMP 98; O2SAT 94
[2017-06-04 20:00] VITALS: BP 116/66; PULSE 111; RESP 20; TEMP 99.1; O2SAT 92
[2017-06-04] MEDS: ATORVASTATIN 10 MG TAB PO SCH (22:07)
[2017-06-04] MEDS: clonazePAM 0.5 MG TAB PO SCH (22:09)
[2017-06-04] MEDS: HYDROmorphone HCL 2 MG TAB PO PRN (22:22)
[2017-06-05] VITALS: BP 138/66; PULSE 54; RESP 18; TEMP 97.6; O2SAT 93
[2017-06-05 04:00] VITALS: BP 167/77; PULSE 66; RESP 18; TEMP 96.5; O2SAT 95
[2017-06-05] MEDS: SODIUM CHLOR 0.9% 1000 ML INJ 1,000 ML IV SCH (06:12)
[2017-06-05] MEDS: LEVOTHYROXINE SODIUM 88 MCG TAB PO SCH (06:13)
[2017-06-05] MEDS: HYDROmorphone HCL 2 MG TAB PO PRN (06:19)
[2017-06-05 08:00] VITALS: BP 189/87; PULSE 66; RESP 20; TEMP 97.8; O2SAT 97
[2017-06-05] MEDS: INSULIN ASPART SUPPLEMENTAL SCALE SQ SCH (08:00)
[2017-06-05] MEDS: cefTRIAXone INJ 1,000 MG in SODIUM CHLORIDE 0.9% INJ 100 ML IV SCH (08:48)
[2017-06-05] MEDS: DOCUSATE SODIUM 50 MG/SENNA 8.6 MG TAB PO SCH (08:49)
[2017-06-05] MEDS: hydrALAZINE HCL 25 MG TAB PO SCH (08:49)
[2017-06-05] MEDS: METOPROLOL TARTRATE 25 MG TAB PO SCH (08:49)
[2017-06-05] MEDS: GABAPENTIN 300 MG CAP PO SCH (08:49)
[2017-06-05] MEDS: PANTOPRAZOLE SOD 20 MG DELAYED RELEASE TAB PO SCH (08:57)
[2017-06-05] MEDS: FLUoxetine HCL 20 MG CAP PO SCH (08:58)
[2017-06-05] MEDS: LORazepam 0.5 MG TAB PO PRN (11:34)
--- NOTE | 2017-06-05 12:22 | HHI.FF ---
Face to Face Verification Diagnosis: (1) Renal calculus, left (2) Ureteral calculus, left Physical Therapy Order: Evaluate and Treat Occupational Therapy Order: Evaluate and Treat Home Health Nursing Order: Medical education Nursing assessment with vital signs I have seen patient Barbara Landrum on 06/05/17. My clinical findings support the need for the requested home health care services because: Ltd mobility - disease progression I certify that my clinical findings support that this patient is homebound because: Unsafe to leave home unassisted Kalee Reynoso MD Jun 05, 2017 12:22
[2017-06-05] MEDS ORDERED: ENOXAPARIN SODIUM 40 MG/0.4 ML SYRINGE SQ SCH (13:00)
[2017-06-05] MEDS ORDERED: CIPR-9 PO (17:24)
--- NOTE | 2017-06-05 17:26 | HHI.DS ---
Discharge Summary Admission Date Jun 04, 2017 at 11:27 Discharge Date: Jun 05, 2017 Admitting Diagnosis KS, ureteral stent, pyelo (1) Ureteral calculus, left ICD Code: N20.1 - Calculus of ureter (2) Renal calculus, left ICD Code: N20.0 - Calculus of kidney Procedures Lithotripsy Brief History - From Admission 82 years old female with history of nephrolithiasis she follow with Dr. ambrose , she had left ureteral stent placed, presented to the ED complaining of severe left flank pain without fever or nausea or vomiting, she is not sure if he transferred to the groin. Positive dysuria. No diarrhea or other associated symptoms. In ED CT scan of the abdomen showed possible re-obstruction of the JOANNA stent with hydronephrosis suspicion concerning for pyelonephritis even though patient did not have does not have leukocytosis CBC/BMP: 06/02/17 0641 06/02/17 0641 PE at Discharge GENERAL: This is a well-nourished, well-developed patient, in no apparent distress. SKIN: No rashes, warm and dry HEAD: Atraumatic. Normocephalic. EYES: Pupils equal round and reactive. Extraocular motions intact. No scleral icterus. ENT: Nose without bleeding, or drainage, Airway patent. NECK: Trachea midline. Supple CARDIOVASCULAR: Regular rate and rhythm without murmurs, gallops, or rubs. RESPIRATORY: Fair air entry bilaterally. No wheezes, rales, or rhonchi. GASTROINTESTINAL: Abdomen soft, non-tender, nondistended. Positive bowel sounds MUSCULOSKELETAL: Extremities without clubbing, cyanosis, or edema. Pedal pulses appreciated NEUROLOGICAL: Awake and alert. Moves all extremity. Normal speech.no focal neurological deficit CVA tenderness positive on the left side Hospital Course 82 years old female with history of nephrolithiasis and left ureteral stenting came with Severe left flank pain Suspect left ureteral stenting obstruction,Left hydronephrosis rule out pyelonephritis,History of hypertension, hyperlipidemia, Plan: DVT prophylaxis Patient admitted, neurology consulted, IV fluid hydration Rocephin for antibiotic, pain management and antiemetic, patient had lithotripsy and cleared by urology to be discharged and follow-up as an outpatient Urine culture showed Proteus mirabilis to Cipro which will be given to the patient Pt Condition on Discharge: Fair Discharge Disposition: ACLF/NGA Discharge Time: <= 30 minutes Discharge Instructions DIET: Follow Instructions for: Heart Healthy Diet, Diabetic Diet Activities you can perform: Weight Bearing as Suraj Follow up Referrals: Urology - 1 Week with Marco Trujillo MD New Medications: Ciprofloxacin (Cipro) 500 Mg Tab 500 MG PO BID for Infection, #14 TAB 0 Refills Continued Medications: Aspirin (Aspirin Low Dose) 81 Mg Chew 81 MG CHEW DAILY, TAB 0 Refills Atorvastatin (Atorvastatin) 10 Mg Tab 10 MG PO HS for Cholesterol Management, #30 TAB 0 Refills Clonazepam (Clonazepam) 0.5 Mg Tab 0.25 MG PO HS, #60 TAB 0 Refills Docusate Sodium (Docusate Sodium) 100 Mg Cap 100 MG PO DAILY for Prevent Constipation, #60 CAP 0 Refills Fluoxetine (Prozac) 20 Mg Cap 20 MG PO DAILY, #30 CAP 0 Refills Furosemide (Lasix) 40 Mg Tab 40 MG PO EVERY OTHER DAY, #30 TAB 0 Refills Gabapentin (Neurontin) 300 Mg Cap 300 MG PO TID, #90 CAP 0 Refills Hydralazine HCl (Hydralazine HCl) 25 Mg Tablet 25 MG PO BID for Blood Pressure Management, #60 TAB 0 Refills Insulin Glargine Inj (Lantus Inj) 1,000 Unit/10 Ml Vial 10 UNITS SQ HS for Blood Sugar Management, VIAL 0 Refills Levothyroxine (Levoxyl) 88 Mcg Tab 88 MCG PO DAILY for Thyroid, #30 TAB 0 Refills Metoprolol Tartrate (Metoprolol Tartrate) 25 Mg Tab 12.5 MG PO BID, #60 TAB 0 Refills Nateglinide (Nateglinide) 120 Mg Tab 120 MG PO TIDAC for Blood Sugar Management, #90 TAB 0 Refills Omeprazole Magnesium (Prilosec) 20 Mg Tab 20 MG PO DAILY Potassium Chloride ER (Potassium Chloride ER) 20 Meq Tab 20 MEQ PO EVERY OTHER DAY for Electrolyte Replacement, #30 TAB 0 Refills Kalee Reynoso MD Jun 05, 2017 17:26
== END 2017-06-05 12:07 | DRG 691 ==
LOC: NEPC 06:19 → INTOOBSV 09:25 → NEDA 09:25 → N07A 15:00 → OBSVTOIN 06-04 11:27
PROVIDERS: ADMIT Hospitalist; ATTEND Hospitalist
PROC: 0TF7XZZ Fragmentation in Left Ureter, External Approach (ICD-10-PCS; principal; 2017-06-04 13:03)
DX: N13.8 Other obstructive and reflux uropathy (principal); N10 Acute pyelonephritis; E11.9 Type 2 diabetes mellitus without complications; N20.1 Calculus of ureter; N20.0 Calculus of kidney; I10 Essential (primary) hypertension; E07.9 Disorder of thyroid, unspecified; R35.0 Frequency of micturition; H91.90 Unspecified hearing loss, unspecified ear; I25.10 Atherosclerotic heart disease of native coronary artery without angina pectoris; E78.00 Pure hypercholesterolemia, unspecified; M19.90 Unspecified osteoarthritis, unspecified site; R32 Unspecified urinary incontinence; G89.29 Other chronic pain; R11.0 Nausea; E78.5 Hyperlipidemia, unspecified; E03.9 Hypothyroidism, unspecified; K21.9 Gastro-esophageal reflux disease without esophagitis; M79.7 Fibromyalgia; Z79.82 Long term (current) use of aspirin; Z87.442 Personal history of urinary calculi; Z88.6 Allergy status to analgesic agent; Z79.4 Long term (current) use of insulin
CPT/HCPCS: 50590; 74176; 80048; 80053; 81001; 82948; 83690; 85025; 85610; 85730; 87077; 87086; 87186; 96361; 96365; 96366; 96372; 96375; 96376; G0378; G8987-GO; G8987-GP; G8988-GO; G8988-GP; J0696; J1170; J1650; J1815; J2250; J2270; J2405; J3010; J7030; P9612